=== PATIENT | female | born 1985 | race Caucasian/White ===

== ENCOUNTER → 2016-05-22 | Outpatient (REF) | payer BC, OTHER ==
[2016-05-22 19:17] LABS: FREE T4 1.47 NG/DL (0.76-1.46)
== END ==
LOC: M LABDRAW1 17:01
PROVIDERS: ATTEND Physician Assistant Medical
DX: O99.281 Endocrine, nutritional and metabolic diseases complicating pregnancy, first trimester (principal)

== ENCOUNTER → 2016-07-01 | Outpatient (CLI) | payer BC, OTHER | LOC: M SMT 14:03 | PROVIDERS: ATTEND Advanced Practice Midwife | DX: Z31.430 Encounter of female for testing for genetic disease carrier status for procreative management (principal) ==

== ENCOUNTER → 2016-07-01 | Outpatient (CLI) | payer BC, OTHER ==
[2016-07-01 18:42] LABS: FREE T4 1.08 NG/DL (0.76-1.46)
== END ==
LOC: M SMT 14:01
PROVIDERS: ATTEND Physician Assistant Medical
DX: E06.3 Autoimmune thyroiditis (principal)

== ENCOUNTER → 2016-07-04 | Outpatient (CLI) | payer BC, OTHER ==
--- NOTE | 2016-07-04 13:12 | REP ---
Clinical: Anatomical evaluation. Comparison: None . Findings: Examination demonstrates a single live intrauterine in variable presentation. motion is identified by technologist. Placenta is noted posteriorly and grade zero without evidence for placenta previa or abruption. Amniotic fluid volume is normal. Cervix measures 3.2 cm in length and appears closed. No evidence for nuchal cord. Gestational age by LMP 19 weeks 1 day with GLENN 11/27/2016 . Gestational age by current measurements 20 weeks 2 day with GLENN 11/19/2016 FHR equals 153 beats per minute. BPD 4.4 cm 19 weeks 3 days HC 17.2 cm 19 weeks 5 days AC 14.2 cm 19 weeks 4 days FL 3.6 cm 21 weeks 3 days HL 3.4 cm 21 weeks 3 days HC/AC ratio 1.21 Estimated weight the 344 grams ( 47th percentile). Anatomical assessment demonstrates normal structures including cranium, choroid plexus, cavum, lungs, diaphragm, stomach, cord insertion/three-vessel cord, kidneys/bladder, and upper extremities. Limited evaluation of the posterior fossa, facial features, heart/ventricular outflow tracts, spine and lower extremities. Impression: Single live intrauterine in cephalic presentation demonstrating appropriate interval growth. Anatomical limitations as described above. No gross abnormalities noted. Signed by Shahriar Feliciano MD 07/04/2016 01:03 P
== END ==
LOC: M RAD 10:47
PROVIDERS: ATTEND Advanced Practice Midwife
DX: Z36 Encounter for antenatal screening of mother (principal); Z3A.20 20 weeks gestation of pregnancy

== ENCOUNTER 2016-07-12 00:34 | Outpatient (CLI) | payer BC, OTHER ==
[~2016-07-12] VITALS: Ht 175.3 cm; Wt 122.0 kg
[2016-07-12 01:01] VITALS: BP 110/59
[2016-07-12] MEDS ORDERED: PRENTAB9 PO (01:08)
--- NOTE | 2016-07-12 02:40 | REPUSA ---
Indication: Vaginal bleeding. Technique: Real-time ultrasound images were obtained. Findings: Single, live intrauterine gestation in transverse presentation. heart rate 149 beats per minute . Maternal cervical length measures 3.7 cm. This was not measured transvaginally. Funneling of the in ternal cervical os was not visualized. Posterior placenta. Placenta previa is identified. Amniotic fl uid index 13.2 cm. This is normal for the gestational age. Nuchal CORD was not seen. Impression: Single, live intrauterine gestation. Cervical length 3.7 cm.
[2016-07-12] MEDS ORDERED: LEVO150T7 PO (03:26)
== END 2016-07-12 03:35 | disposition home or self-care (01) ==
LOC: M LDO 00:34
PROVIDERS: ATTEND Advanced Practice Midwife
DX: O26.853 Spotting complicating pregnancy, third trimester (principal); Z3A.20 20 weeks gestation of pregnancy

== ENCOUNTER → 2016-07-26 | Outpatient (CLI) | payer BC, OTHER ==
[~2016-07-26] MED LIST: LEVO150T7 PO; PRENTAB9 PO
--- NOTE | 2016-07-26 11:42 | REP ---
OB ULTRASOUND: Real-time sonographic evaluation of the gravid uterus performed. There is a single intrauterine gestation with estimated gestational age 23 weeks 3 days, EDC 11/19/2016. Today's measurements indicate appropriate growth. BPD 56 mm 23 weeks 1 day, 42nd percentile HC 212 mm 23 weeks 2 days, 46th percentile AC 169 mm 21 weeks 6 days, 17th percentile FL 40 mm 22 weeks 5 days, 33rd percentile HC/AC ratio 1.26 slightly above normal range of 1.03 - 1.22. Estimated weight 502 grams, 16th percentile. Cervix closed and measures 4.1 cm in length. heart rate 147 beats per minute. SEEN/GROSSLY UNREMARKABLE Lateral ventricles Yes Posterior fossa Yes Upper lip Yes Four-chamber heart Yes LVOT No RVOT No Stomach Yes Cord insertion Yes Three vessel cord Yes Kidneys Yes Bladder Yes Spine Yes position: Vertex. Placenta: Posterior. There again appears to be complete placenta previa with no abruption. Amniotic fluid: Within normal limits. Signed by Jose Alberto Rodriguez MD 07/26/2016 04:59 P
== END ==
LOC: M RAD 09:38
PROVIDERS: ATTEND Advanced Practice Midwife
DX: Z36 Encounter for antenatal screening of mother (principal); Z3A.23 23 weeks gestation of pregnancy

== ENCOUNTER → 2016-08-16 | Outpatient (CLI) | payer BC, OTHER ==
[2016-08-16 18:39] LABS: FREE T4 1.22 NG/DL (0.76-1.46)
== END ==
LOC: M SMT 14:34
PROVIDERS: ATTEND Physician Assistant Medical
DX: E06.3 Autoimmune thyroiditis (principal)

== ENCOUNTER → 2016-08-23 | Outpatient (CLI) | payer BC, OTHER ==
[2016-08-23 13:51] LABS: MEAN CORPUSCULAR HEMOGLOBIN 31.2 pg (27.0-33.0); MEAN CORPUSCULAR HGB CONC 33.9 g/dl (32.0-36.5); MEAN CORPUSCULAR VOLUME 91.8 fl (80.0-96.0); RED CELL DISTRIBUTION WIDTH 13.8 % (11.5-14.5); WHITE BLOOD COUNT 7.9 K/mm3 (4.0-10.0)
== END ==
LOC: M SMT 09:31
PROVIDERS: ATTEND Obstetrics & Gynecology
DX: Z31.82 Encounter for Rh incompatibility status (principal)

== ENCOUNTER 2016-09-05 11:46 | Outpatient (CLI) | payer BC, OTHER ==
[~2016-09-05] VITALS: Ht 175.3 cm; Wt 129.0 kg
[2016-09-05 12:03] VITALS: BP 123/83
[2016-09-05 13:39] VITALS: BP 123/94
[2016-09-05 14:01] VITALS: BP 131/78
[2016-09-05] MEDS ORDERED: BETAMETHASONE SOLUSPAN 6MG/ML INJ 5ML (J0702) IM SCH (15:00)
[2016-09-05 15:14] VITALS: BP 120/58
== END 2016-09-05 15:20 | disposition home or self-care (01) ==
LOC: M LDO 11:46
PROVIDERS: ATTEND Obstetrics & Gynecology
DX: O26.873 Cervical shortening, third trimester (principal); O44.03 Complete placenta previa NOS or without hemorrhage, third trimester; Z3A.28 28 weeks gestation of pregnancy; O99.283 Endocrine, nutritional and metabolic diseases complicating pregnancy, third trimester; E03.9 Hypothyroidism, unspecified; Z79.899 Other long term (current) drug therapy; Z91.040 Latex allergy status
CPT/HCPCS: 59025; 76815; 96372; J0702

== ENCOUNTER → 2016-09-05 | Outpatient (CLI) | payer BC, OTHER ==
--- NOTE | 2016-09-06 03:43 | REP ---
Clinical: Anatomical evaluation. Comparison: 07/26/2016 . Findings: Examination demonstrates a single live intrauterine in cephalic presentation. motion is identified by technologist. Placenta is noted posteriorly and grade one with evidence for complete placenta previa and suggestions for vasa previa. Amniotic fluid volume is normal. Cervix measures 1.4 cm. Nuchal cord cannot be excluded. Gestational age by LMP 28 weeks 1 day with GLENN 11/27/2016 . Gestational age by current measurements 29 weeks 1 day with GLENN 11/20/2016 . FHR equals 144 beats per minute. Estimated weight 1335 grams ( 66th percentile). Limited anatomical assessment demonstrates no gross abnormalities with normal visualization of the cranium, cavum, stomach, three-vessel cord/cord insertion, kidneys/bladder, and lower extremities. Impression: Incompetent cervix at 1.4 cm and closed internal os. Complete placenta previa and possible associated vasa previa. Nuchal cord cannot be excluded. special procedures technologist note states the patient went directly to labor and delivery. Signed by Shahriar Feliciano MD 09/06/2016 03:34 A
== END ==
LOC: M RAD 10:40
PROVIDERS: ATTEND Obstetrics & Gynecology
DX: O44.12 Complete placenta previa with hemorrhage, second trimester (principal); Z3A.29 29 weeks gestation of pregnancy

== ENCOUNTER 2016-09-06 14:24 | Outpatient (CLI) | payer BC, OTHER ==
[~2016-09-06] VITALS: Ht 175.3 cm; Wt 129.0 kg
[2016-09-06 14:41] VITALS: BP 116/78
[2016-09-06] MEDS ORDERED: BETAMETHASONE SOLUSPAN 6MG/ML INJ 5ML (J0702) IM ONE (15:15)
[2016-09-06 15:30] VITALS: BP 109/72
--- NOTE | 2016-09-11 10:19 | IPN ---
DATE: 09/06/2016 HISTORY: 31-year-old G3, P1-0-1-1 female 28-2/7 weeks gestation, EDC 11/27/2016 presents for repeat dose of betamethasone. She was noted yesterday to have a short cervix on ultrasound exam. The ultrasound was done to evaluate placenta previa. A single dose of steroid was administered on 09/05/2016. She presents for repeat dose. She has no complaints. ASSESSMENT AND PLAN: 31, G3, P1 at 28-2/7 weeks gestation presents for repeat dose of steroids. Patient has been administered her second dose. She will followup in the office as scheduled.
== END 2016-09-06 15:34 | disposition home or self-care (01) ==
LOC: M LDO 14:24
PROVIDERS: ATTEND Specialist
DX: O09.92 Supervision of high risk pregnancy, unspecified, second trimester (principal); Z91.040 Latex allergy status; Z3A.00 Weeks of gestation of pregnancy not specified

== ENCOUNTER → 2016-09-25 | Outpatient (CLI) | payer BC, OTHER ==
[2016-09-25 19:39] LABS: FREE T4 1.11 NG/DL (0.76-1.46)
== END ==
LOC: M SMT 14:07
PROVIDERS: ATTEND Physician Assistant Medical
DX: O22.33 Deep phlebothrombosis in pregnancy, third trimester (principal)

== ENCOUNTER → 2016-10-04 | Outpatient (CLI) | payer BC, OTHER ==
--- NOTE | 2016-10-04 11:00 | REP ---
Clinical: Placenta previa. Comparison: 09/05/2016. Findings: Ultrasound examination demonstrates single live intrauterine in cephalic presentation. motion was identified by technologist. Gestational age by first ultrasound 33 weeks 3 days with estimated date of delivery 11/19/2016. heart rate equals 157 beats per minute. Placenta is noted posteriorly and grade II with complete placenta previa and retroplacental vessels overlying the closed internal os. Cervix measures 2 cm in length. Impression: 1 Posterior grade II placenta with complete placenta previa and evidence for retroplacental vessels over the internal os. 2. Cervix appears closed and measures 2 cm in length. 3. Live in cephalic presentation. Signed by Shahriar Feliciano MD 10/04/2016 10:52 A
== END ==
LOC: M RAD 10:06
PROVIDERS: ATTEND Advanced Practice Midwife
DX: O44.13 Complete placenta previa with hemorrhage, third trimester (principal); Z3A.33 33 weeks gestation of pregnancy

== ENCOUNTER 2016-10-23 12:25 | Outpatient (CLI) | payer BC, OTHER ==
[~2016-10-23] VITALS: Ht 175.3 cm; Wt 132.0 kg
[~2016-10-23 12:25] MED LIST changes: -COLA100C3 PO; -IBUP800T23 PO; -MILKSUS PO; -PERCOCET PO
[2016-10-23 12:45] VITALS: BP 125/69
[2016-10-23] MEDS ORDERED: BETAMETHASONE SOLUSPAN 6MG/ML INJ 5ML (J0702) IM SCH (13:00)
[2016-10-23 13:47] VITALS: BP 121/72
== END 2016-10-23 13:55 | disposition home or self-care (01) ==
LOC: M LDO 12:25
PROVIDERS: ATTEND Advanced Practice Midwife
DX: O44.03 Complete placenta previa NOS or without hemorrhage, third trimester (principal); Z3A.35 35 weeks gestation of pregnancy
CPT/HCPCS: 59025; J0702

== ENCOUNTER → 2016-10-23 | Outpatient (CLI) | payer BC, OTHER ==
[~2016-10-23] MED LIST changes: +COLA100C3 PO; +IBUP800T23 PO; +MILKSUS PO; +PERCOCET PO
--- NOTE | 2016-10-23 12:54 | REP ---
Obstetric ultrasound, stat request: There is a single intrauterine gestation in a vertex presentation. There is movement and cardiac activity. heart rate is 150 beats per minute. The left posterior, however, there is a complete placenta previa. This was also identified on the prior study of 10/04/2016. The amniotic fluid volume subjectively is normal. The amniotic fluid index is 16.5 (7.7 dash 24.8). By today's ultrasound gestational age is 36 weeks 3 days with an GLENN of 11/17/2016. Based on the first ultrasound during this gestation the gestational age is 36 weeks 1 day. weight is 3000 and 7 grams (6 pounds, 10 ounces). This is the 61st percentile for 36 weeks 1 day. Umbilical artery Doppler assessment: SD ratio 2.33. This is 1.95 - 2.95). Resistive index 0.57 (0.59 - 0.75). Diastolic flow velocity 18.5 cm/sec. Signed by Jose Alberto Piña MD 10/23/2016 12:45 P
== END ==
LOC: M RAD 10:51
PROVIDERS: ATTEND Obstetrics & Gynecology
DX: O44.00 Complete placenta previa NOS or without hemorrhage, unspecified trimester (principal)

== ENCOUNTER 2016-10-24 13:35 | Outpatient (CLI) | payer BC, OTHER ==
[2016-10-24] MEDS ORDERED: BETAMETHASONE SOLUSPAN 6MG/ML INJ 5ML (J0702) IM ONE (13:45)
== END 2016-10-24 13:46 | disposition home or self-care (01) ==
LOC: M LDO 13:35
PROVIDERS: ATTEND Obstetrics & Gynecology
DX: O09.893 Supervision of other high risk pregnancies, third trimester (principal); Z3A.00 Weeks of gestation of pregnancy not specified

== ENCOUNTER 2016-10-27 01:31 | Inpatient (IN) | payer BC, OTHER ==
[~2016-10-27] VITALS: Ht 175.3 cm; Wt 132.0 kg
[2016-10-27] VITALS (9 sets, daily range): BP systolic 88–116; BP diastolic 50–68
[2016-10-27] MEDS ORDERED: LACTATED RINGER'S 1000 ML IV STA (01:45)
[2016-10-27] MEDS ORDERED: BICITRA 30ML SOLN UDC PO ONE (01:45)
[2016-10-27] MEDS ORDERED: LR 1,000 ML IV SCH (01:45)
[2016-10-27] MEDS ORDERED: OXYTOCIN INJ 10 UNITS/ML VIAL (J2590) As Ordered ONE (01:55)
[2016-10-27] MEDS ORDERED: MORPHINE PRES-FREE INJ 10 MG/10 ML VIAL (J2274) As Ordered ONE (01:55)
[2016-10-27 02:10] LABS: MEAN CORPUSCULAR HEMOGLOBIN 31.4 pg (27.0-33.0); MEAN CORPUSCULAR HGB CONC 35.2 g/dl (32.0-36.5); MEAN CORPUSCULAR VOLUME 89.1 fl (80.0-96.0); RED CELL DISTRIBUTION WIDTH 13.6 % (11.5-14.5); WHITE BLOOD COUNT 9.3 K/mm3 (4.0-10.0)
[2016-10-27] MEDS ORDERED: NALBUPHINE HCL 10 MG/ML AMP (J2300) IV PRN ×2 (02:13→03:45)
[2016-10-27] MEDS ORDERED: NALOXONE INJ 0.4 MG/1 ML VIAL (J2310) IV PRN ×2 (02:13)
[2016-10-27] MEDS ORDERED: METOCLOPRAMIDE INJ 10MG/2ML VIAL (J2765) IV PRN (02:13)
[2016-10-27] MEDS ORDERED: ONDANSETRON 4MG/2ML VIAL (J2405) IV PRN ×2 (02:13→03:45)
[2016-10-27] MEDS ORDERED: PHENYLephrine HCL 500 MCG/5 ML (100MCG/ML) SYRINGE (J2370) As Ordered ONE (02:16)
[2016-10-27] MEDS ORDERED: ONDANSETRON 4MG/2ML VIAL (J2405) As Ordered ONE (02:27)
[2016-10-27] MEDS ORDERED: KETOROLAC 60 MG/2 ML VIAL (J1885) As Ordered ONE (02:27)
[2016-10-27] MEDS: LR 1,000 ML IV SCH ×2 (03:13→08:02)
[2016-10-27] MEDS ORDERED: MOM 30ML SUSPENSION UDC PO PRN (03:15)
[2016-10-27] MEDS ORDERED: OXYTOCIN DRIP 30 UNITS in APPROPRIATE DILUENT 1 EA IV ONE (03:15)
[2016-10-27] MEDS ORDERED: RHOGAM 300 MCG (1500 IU) INJ (J2790) IM SCH (03:15)
[2016-10-27] MEDS ORDERED: DOCUSATE SODIUM 100 MG CAP PO PRN (03:15)
[2016-10-27] MEDS ORDERED: PERCOCET 5MG/325MG TAB PO PRN ×2 (03:15)
[2016-10-27] MEDS ORDERED: MEASLES,MUMPS,RUBELLA VACCINE INJ (MMR-II) (90707) SC SCH (03:15)
[2016-10-27 03:44] LABS: CORD GAS ABE V -0.3; CORD GAS HCO3 V 26.1 MEQ/L; CORD GAS O2 SAT V 49.9 %; CORD GAS PCO2 V 49.8 mmHg; CORD GAS PH V 7.338 UNITS; CORD GAS PO2 V 23.5 mmHg; CORD GAS SBC V 23.1 MEQ/L; CORD GAS TCO2 V 27.7 MEQ/L
[2016-10-27 03:45] LABS: CORD GAS ABE A -5.1; CORD GAS HCO3 A 23.8 MEQ/L; CORD GAS O2 SAT A 23.1 %; CORD GAS PCO2 A 61.5 mmHg; CORD GAS PH A 7.206 UNITS; CORD GAS PO2 A 15.5 mmHg; CORD GAS SBC A 18.7 MEQ/L; CORD GAS TCO2 A 25.7 MEQ/L
[2016-10-27] MEDS ORDERED: MEPERIDINE INJ 25 MG/ML VIAL (J2175) IV PRN (03:45)
[2016-10-27] MEDS ORDERED: fentaNYL 100 MCG/2 ML INJECTION (J3010) IV PRN (03:45)
--- NOTE | 2016-10-27 08:29 | RO ---
DATE OF PROCEDURE: 10/27/2016 PREPROCEDURE DIAGNOSES: 1. Bleeding, placenta previa. 2. Intrauterine at 35 weeks 3 days. POSTPROCEDURE DIAGNOSES: 1. Bleeding, placenta previa. 2. Intrauterine at 35 weeks 3 days. PROCEDURE: Primary lower transverse section. SURGEON: Dr. Gabriela Gonzalez MICROFICHE CAMERA OPERATOR: Maggi Woods CNM ANESTHESIA: Spinal. ESTIMATED BLOOD LOSS: 700 mL. URINE OUTPUT: 50 mL. INTRAVENOUS FLUIDS: 2 liters of lactated ringer solution. PREOPERATIVE ANTIBIOTICS: 2 grams of Ancef. SPECIMENS: Cord blood, cord gases and placenta. OPERATIVE FINDINGS: Patient with a complete placenta previa. Delivery of a live born male infant, scores 7 and 8, weight 2818 grams or 6 pounds 3 ounces. INDICATION FOR PROCEDURE: This patient is a 31-year-old, 2, para 1, who presented to labor and delivery at 35 weeks 3 days estimated gestational age with a known placenta previa with acute vaginal bleeding. She had had a previous episode of vaginal bleeding early in the and she had a completed a course of steroids. On evaluation in labor and delivery, she had active bleeding with a Category 1 heart rate tracing. Decision was made to proceed with a delivery secondary to active bleeding with a placenta previa. DESCRIPTION OF OPERATION: After informed consent was obtained and written content was reviewed, the patient was brought to the operating room where spinal anesthesia was placed. She was then placed in supine position with a left lateral tilt. Dukes catheter was placed and set to gravity. She was then prepped and draped in a normal sterile fashion. A time out in the operating room was then performed identifying the patient, the procedure to be performed, as well as drug allergies. Anesthesia was then tested and deemed to be adequate. A Pfannenstiel skin incision was then made and carried down to the underlying rectus fascia. The fascia was then scored and this incision was extended bilaterally. The fascia was then dissected off the underlying rectus muscles, both superiorly and inferiorly. The rectus muscles were in the midline. The peritoneum was then entered. The vesicouterine peritoneum was then identified, was tented and excised creating a bladder flap. The bladder blade was then placed to retract back the bladder. A curvilinear incision was then made in the lower uterine segment. Amniotomy was then performed productive of clear fluid. The head was brought to the level of the incision and it was delivered with the aid of a Kiwi vacuum. There was a double nuchal cord which was reduced, followed by delivery of shoulders and corpus. The cord was clamped times two and was cut. The was taken over to the warmer where Dr. Sargent, meter attendant waited. Cord gases and cord blood was obtained. The placenta was then delivered grossly intact. The uterus was then exteriorized and cleared of all clots and debris. The uterine incision was then closed in two layers using #0 Vicryl, the first layer in a running locking fashion, followed by a second layer for imbrication in a running nonlocking fashion. A [id number] stitch was also placed over the incision. The abdomen was then suctioned. The uterine incision was inspected and noted to be hemostatic. The uterus was returned in the patient's abdomen. Once again inspected and noted to be hemostatic. The anterior peritoneum was then reapproximated using #3-0 Vicryl. The rectus muscles were reapproximated using #3-0 Vicryl. The fascia was then closed using #0 Vicryl in a running nonlocking fashion. The subcutaneous tissue was then reapproximated using #3-0. Several subdermal stitches were placed using #3-0 Vicryl. The skin was closed with #4-0 Monocryl in a subcuticular fashion. The incision was then cleaned and dried. Mastisol was applied above and below the incision. Steri-Strips were applied over the incision. The incision was dressed. The patient was then taken to recovery in stable condition. Counts were correct. The couple has decided to name their daughter, Chinyere.
[2016-10-27] MEDS ORDERED: PRENATAL VITAMIN TAB PO SCH (09:00)
[2016-10-27] MEDS: KETOROLAC 30 MG/ML VIAL (J1885) IV SCH ×3 (09:12→21:11)
[2016-10-27] MEDS: LEVOTHYROXINE 150MCG TABLET (0.15MG) PO SCH (11:12)
[2016-10-27] MEDS ORDERED: IBUP800T23 PO (12:51)
[2016-10-27] MEDS ORDERED: PERCOCET PO (12:52)
[2016-10-27] MEDS: PRENATAL VITAMIN TAB PO SCH (21:11)
[2016-10-28 01:40] VITALS: BP 114/61
[2016-10-28] MEDS: KETOROLAC 30 MG/ML VIAL (J1885) IV SCH (03:05)
[2016-10-28 05:32] VITALS: BP 107/56
[2016-10-28] MEDS: LEVOTHYROXINE 150MCG TABLET (0.15MG) PO SCH (06:09)
[2016-10-28 06:46] LABS: MEAN CORPUSCULAR HEMOGLOBIN 31.8 pg (27.0-33.0); MEAN CORPUSCULAR HGB CONC 35.1 g/dl (32.0-36.5); MEAN CORPUSCULAR VOLUME 90.8 fl (80.0-96.0); RED CELL DISTRIBUTION WIDTH 13.8 % (11.5-14.5); WHITE BLOOD COUNT 9.2 K/mm3 (4.0-10.0)
[2016-10-28 10:00] VITALS: BP 110/65
[2016-10-28] MEDS: IBUPROFEN 800 MG TAB PO SCH ×2 (11:09→18:43)
[2016-10-28 14:32] VITALS: BP 123/72
[2016-10-28 18:12] VITALS: BP 113/78
[2016-10-28] MEDS: PRENATAL VITAMIN TAB PO SCH (20:06)
[2016-10-29] MEDS: IBUPROFEN 800 MG TAB PO SCH ×2 (04:11→10:09)
[2016-10-29] MEDS: LEVOTHYROXINE 150MCG TABLET (0.15MG) PO SCH (05:30)
[2016-10-29 05:46] VITALS: BP 99/57
[2016-10-29] MEDS ORDERED: COLA100C3 PO (10:22)
[2016-10-29] MEDS ORDERED: MILKSUS PO (10:25)
--- NOTE | 2016-10-31 15:33 | DSES ---
DATE OF ADMISSION: 10/27/2016 DATE OF DISCHARGE: 10/29/2016 DISCHARGE DIAGNOSES: 1. Complete placenta previa. 2. Primary section. PROCEDURES PERFORMED WHILE IN THE HOSPITAL: 1. Spinal anesthesia. 2. Primary section. DISCHARGE CONDITION: Stable. HISTORY/HOSPITAL COURSE: This patient is a 31-year-old 2, para 1, who presented at 35 weeks with active vaginal bleeding in presence of a known complete placenta previa. She underwent a section which was uncomplicated, productive of a live born male infant, Apgars of 7 and 8. Weight was 2818 grams or 6 pounds 3 ounces. Estimated blood loss was 700 mL. She did well postoperatively and by postop day #2 had met all discharge criteria and was discharged home in stable condition. PHYSICAL EXAMINATION ON DAY OF DISCHARGE: VITAL SIGNS: Stable. She was afebrile. GENERAL APPEARANCE: Well appearing. No acute distress. ABDOMEN: Soft. Appropriately tender. Fundus below umbilicus. Incision was clean, dry, intact. Well approximated. Not erythemic. EXTREMITIES: Negative for calf tenderness. DISCHARGE MEDICATIONS: - ibuprofen - Percocet DISCHARGE INSTRUCTIONS: 1. She is instructed to followup for incision check in 2 weeks. 2. Remain on pelvic rest. 3. Report severe pain, heavy vaginal bleeding, fever or incisional issues.
== END 2016-10-29 11:03 | disposition home or self-care (01) | DRG 540 ==
LOC: M LDI 01:31 → M OBS 05:15
PROVIDERS: ADMIT Advanced Practice Midwife; ATTEND Advanced Practice Midwife
PROC: 10D00Z1 Extraction of Products of Conception, Low, Open Approach (ICD-10-PCS; principal; 2016-10-27 02:21)
DX: O44.13 Complete placenta previa with hemorrhage, third trimester (principal); O69.82X0 Labor and delivery complicated by other cord entanglement, without compression, not applicable or unspecified; Z3A.35 35 weeks gestation of pregnancy; Z37.0 Single live birth

== ENCOUNTER → 2017-01-15 | Outpatient (CLI) | payer BC, OTHER ==
[~2017-01-15] MED LIST changes: +COLA100C5 PO; +IBUP1TAB7 PO; +MILKSUS PO; +PERCOCET PO
[2017-01-15 13:33] LABS: FREE T4 0.87 NG/DL (0.76-1.46)
== END ==
LOC: M SMT 08:56
PROVIDERS: ATTEND Internal Medicine Endocrinology, Diabetes & Metabolism
DX: E06.3 Autoimmune thyroiditis (principal)

== ENCOUNTER → 2017-04-29 | Outpatient (CLI) | payer BC, OTHER ==
[2017-04-29 13:39] LABS: FREE T4 0.72 NG/DL (0.76-1.46)
== END ==
LOC: M SMT 11:37
PROVIDERS: ATTEND Internal Medicine Endocrinology, Diabetes & Metabolism
DX: E06.3 Autoimmune thyroiditis (principal)

== ENCOUNTER → 2017-05-21 | Outpatient (REF) | payer OTHER ==
[2017-05-24 08:09] LABS: HPV HYBRID CAPTURE II Negative (Negative)
== END ==
LOC: M LAB REF 17:59
DX: Z12.4 Encounter for screening for malignant neoplasm of cervix (principal)

== ENCOUNTER → 2017-07-01 | Outpatient (CLI) | payer BC, OTHER ==
[2017-07-01 20:21] LABS: FREE T4 1.26 NG/DL (0.76-1.46)
[2017-07-01 20:21] LABS: THYROID STIMULATING HORMONE 0.226 uIU/ML (0.358-3.740)
== END ==
LOC: M SMT 15:08
DX: E06.3 Autoimmune thyroiditis (principal)
CPT/HCPCS: 84443

== ENCOUNTER → 2017-10-03 | Outpatient (REF) | payer OTHER ==
[2017-10-03 12:35] LABS: FREE T4 1.64 NG/DL (0.76-1.46)
[2017-10-03 12:35] LABS: THYROID STIMULATING HORMONE 0.046 uIU/ML (0.358-3.740)
== END ==
LOC: M LABDRAW1 09:20
DX: E06.3 Autoimmune thyroiditis (principal)
CPT/HCPCS: 84443

== ENCOUNTER → 2017-12-07 | Outpatient (CLI) | payer OTHER ==
[2017-12-07 18:27] LABS: FREE T4 1.14 NG/DL (0.76-1.46)
== END ==
LOC: M WUC 16:01
DX: E06.3 Autoimmune thyroiditis (principal)

== ENCOUNTER → 2018-03-31 | Outpatient (CLI) | payer OTHER ==
[2018-03-31 14:10] LABS: HCG, SERUM QUANTITATIVE 12 MIU/ML
== END ==
LOC: M SMT 09:15
DX: O02.1 Missed abortion (principal)
CPT/HCPCS: 84702

== ENCOUNTER → 2018-03-31 | Outpatient (CLI) | payer OTHER ==
[2018-03-31 14:21] LABS: BASO % 0.6 % (0.0-1.0); EOS # 0.3 10^3/uL (0.0-0.50); EOS % 4.4 % (0.0-3.0); HEMATOCRIT 39.4 % (36.0-47.0); IMMATURE GRANULOCYTE % 0.2 % (0-3.0); LYMPH # 2.2 10^3/uL (1.5-4.5); LYMPH % 36.4 % (24.0-44.0); MEAN CORPUSCULAR HEMOGLOBIN 30.9 pg (27.0-33.0); MEAN CORPUSCULAR VOLUME 93.6 fl (80.0-96.0); MONO # 0.3 10^3/uL (0.0-0.8); MONO % 5.4 % (0.0-5.0); NEUTROPHILS # 3.3 10^3/uL (1.8-7.7); PLATELET COUNT, AUTOMATED 377 10^3/uL (150-450); RED BLOOD COUNT 4.21 10^6/uL (4.00-5.40); RED CELL DISTRIBUTION WIDTH 12.3 % (11.5-14.5); WHITE BLOOD COUNT 6.2 10^3/uL (4.0-10.0)
[2018-03-31 14:22] LABS: HEMATOCRIT 39.4 % (36.0-47.0)
[2018-03-31 14:27] LABS: ALBUMIN 3.8 GM/DL (3.2-5.2); ALBUMIN/GLOBULIN RATIO 1.19 (1.00-1.93); ALKALINE PHOSPHATASE 72 U/L (45-117); ALT/SGPT 20 U/L (12-78); ANION GAP 5 MEQ/L (8-16); AST/SGOT 12 U/L (7-37); BILIRUBIN,TOTAL 0.4 MG/DL (0.2-1.0); BLOOD UREA NITROGEN 10 MG/DL (7-18); CARBON DIOXIDE LEVEL 28 MEQ/L (21-32); CHLORIDE LEVEL 106 MEQ/L (98-107); CREATININE FOR GFR 0.73 MG/DL (0.55-1.30); FERRITIN 12 NG/ML (8-252); GLOMERULAR FILTRATION RATE > 60.0 (>60); GLUCOSE, FASTING 90 MG/DL (70-100); IRON (FE) 58 UG/DL (50-170); MAGNESIUM LEVEL 2.4 MG/DL (1.8-2.4); PHOSPHORUS LEVEL 3.9 MG/DL (2.5-4.9); POTASSIUM SERUM 4.5 MEQ/L (3.5-5.1); SODIUM LEVEL 139 MEQ/L (136-145); TOTAL IRON BINDING CAPACITY 323 UG/DL (250-450)
[2018-03-31 14:35] LABS: TOTAL 25(OH) VITAMIN D 23.9 NG/ML (30.0-100.0); VITAMIN B12 LEVEL 628 PG/ML (247-911)
[2018-03-31 14:46] LABS: ESTIMATED AVERAGE GLUCOSE 94 MG/DL (60-110); HEMOGLOBIN A1c 4.9 %
[2018-04-03 12:55] LABS: PRETREATED FOLATE FOR RBCFOL 11.3 NG/ML; RBC FOLATE 602 NG/ML (280-791)
== END ==
LOC: M SMT 09:10
DX: K91.2 Postsurgical malabsorption, not elsewhere classified (principal); E55.9 Vitamin D deficiency, unspecified; Z98.84 Bariatric surgery status
CPT/HCPCS: 83550

== ENCOUNTER → 2018-04-07 | Outpatient (CLI) | payer BC, OTHER ==
[2018-04-07 14:01] LABS: FREE T4 1.14 NG/DL (0.76-1.46)
== END ==
LOC: M SMT 10:50
DX: E06.3 Autoimmune thyroiditis (principal)
CPT/HCPCS: 84443

== ENCOUNTER → 2018-04-07 | Outpatient (CLI) | payer BC, OTHER ==
[2018-04-07 13:41] LABS: HCG, SERUM QUANTITATIVE 3 MIU/ML
== END ==
LOC: M SMT 10:47
DX: O02.1 Missed abortion (principal)
CPT/HCPCS: 84702

== ENCOUNTER → 2018-09-28 | Outpatient (CLI) | payer BC, OTHER ==
[~2018-09-28] MED LIST changes: +MILK120011 PO; -MILKSUS PO
[2018-09-28 17:22] LABS: BASO % 0.6 % (0.0-1.0); EOS # 0.3 10^3/uL (0.0-0.50); EOS % 4.9 % (0.0-3.0); HEMATOCRIT 40.4 % (36.0-47.0); HEMOGLOBIN 12.6 g/dl (12.0-15.5); LYMPH # 2.7 10^3/uL (1.5-4.5); LYMPH % 42.9 % (24.0-44.0); MEAN CORPUSCULAR HEMOGLOBIN 28.1 pg (27.0-33.0); MEAN CORPUSCULAR HGB CONC 31.2 g/dl (32.0-36.5); MEAN CORPUSCULAR VOLUME 90.2 fl (80.0-96.0); MONO # 0.4 10^3/uL (0.0-0.8); MONO % 6.9 % (0.0-5.0); NEUTROPHILS # 2.8 10^3/uL (1.8-7.7); NEUTROPHILS % 44.4 % (36.0-66.0); PLATELET COUNT, AUTOMATED 380 10^3/uL (150-450); RED BLOOD COUNT 4.48 10^6/uL (4.00-5.40); WHITE BLOOD COUNT 6.4 10^3/uL (4.0-10.0)
[2018-09-28 17:32] LABS: ALBUMIN 3.4 GM/DL (3.2-5.2); ALT/SGPT 60 U/L (12-78); BILIRUBIN,TOTAL 0.4 MG/DL (0.2-1.0); BLOOD UREA NITROGEN 8 MG/DL (7-18); CALCIUM LEVEL 8.4 MG/DL (8.5-10.1); CARBON DIOXIDE LEVEL 28 MEQ/L (21-32); CHLORIDE LEVEL 107 MEQ/L (98-107); CREATININE FOR GFR 0.58 MG/DL (0.55-1.30); FERRITIN 8 NG/ML (8-252); GLOMERULAR FILTRATION RATE > 60.0 (>60); GLUCOSE, FASTING 72 MG/DL (70-100); IRON (FE) 100 UG/DL (50-170); MAGNESIUM LEVEL 2.2 MG/DL (1.8-2.4); PERCENT SATURATION 29.9 % (13.2-45.0); PHOSPHORUS LEVEL 3.7 MG/DL (2.5-4.9); POTASSIUM SERUM 4.5 MEQ/L (3.5-5.1); SODIUM LEVEL 142 MEQ/L (136-145); TOTAL IRON BINDING CAPACITY 335 UG/DL (250-450); TOTAL PROTEIN 6.9 GM/DL (6.4-8.2)
[2018-09-28 17:33] LABS: TOTAL 25(OH) VITAMIN D 29.1 NG/ML (30.0-100.0); VITAMIN B12 LEVEL 613 PG/ML (247-911)
[2018-09-28 17:34] LABS: FOLATE 12.9 NG/ML (>5.4)
[2018-09-28 18:30] LABS: HEMOGLOBIN A1c 5.7 %
== END ==
LOC: M SMT 13:32
PROVIDERS: ATTEND Physician Assistant Surgical
DX: K91.2 Postsurgical malabsorption, not elsewhere classified (principal); E55.9 Vitamin D deficiency, unspecified; Z98.84 Bariatric surgery status

== ENCOUNTER → 2018-10-27 | Outpatient (REF) | payer OTHER ==
[2018-10-27 17:18] LABS: FREE T4 1.01 NG/DL (0.76-1.46); THYROID STIMULATING HORMONE 0.482 uIU/ML (0.358-3.740)
== END ==
LOC: M LABDRAW1 16:27
PROVIDERS: ATTEND Nurse Practitioner Family
DX: E06.3 Autoimmune thyroiditis (principal)

== ENCOUNTER → 2019-03-24 | Outpatient (CLI) | payer OTHER ==
[2019-03-24 16:50] LABS: HEMATOCRIT 33.5 % (36.0-47.0)
[2019-03-24 16:59] LABS: BASO # 0.1 10^3/uL (0.0-0.2); BASO % 1.1 % (0.0-1.0); EOS # 0.3 10^3/uL (0.0-0.5); EOS % 5.6 % (0.0-3.0); HEMATOCRIT 32.6 % (36.0-47.0); HEMOGLOBIN 9.8 g/dl (12.0-15.5); LYMPH # 2.3 10^3/uL (1.5-5.0); LYMPH % 48.4 % (24.0-44.0); MEAN CORPUSCULAR HEMOGLOBIN 24.6 pg (27.0-33.0); MEAN CORPUSCULAR HGB CONC 30.1 g/dl (32.0-36.5); MEAN CORPUSCULAR VOLUME 81.7 fl (80.0-96.0); MONO # 0.4 10^3/uL (0.0-0.8); MONO % 8.1 % (0.0-5.0); NEUTROPHILS # 1.7 10^3/uL (1.5-8.5); NEUTROPHILS % 36.8 % (36.0-66.0); PLATELET COUNT, AUTOMATED 341 10^3/uL (150-450); RED BLOOD COUNT 3.99 10^6/uL (4.00-5.40); WHITE BLOOD COUNT 4.7 10^3/uL (4.0-10.0)
[2019-03-24 17:32] LABS: ALBUMIN 3.5 GM/DL (3.2-5.2); ALT/SGPT 24 U/L (12-78); BILIRUBIN,TOTAL 0.4 MG/DL (0.2-1.0); BLOOD UREA NITROGEN 8 MG/DL (7-18); CALCIUM LEVEL 8.6 MG/DL (8.5-10.1); CARBON DIOXIDE LEVEL 28 MEQ/L (21-32); CHLORIDE LEVEL 107 MEQ/L (98-107); CREATININE FOR GFR 0.69 MG/DL (0.55-1.30); FERRITIN 5 NG/ML (8-252); GLOMERULAR FILTRATION RATE > 60.0 (>60); GLUCOSE, FASTING 71 MG/DL (70-100); IRON (FE) 28 UG/DL (50-170); MAGNESIUM LEVEL 2.1 MG/DL (1.8-2.4); PERCENT SATURATION 7.2 % (13.2-45.0); POTASSIUM SERUM 4.5 MEQ/L (3.5-5.1); SODIUM LEVEL 139 MEQ/L (136-145); TOTAL IRON BINDING CAPACITY 387 UG/DL (250-450); TOTAL PROTEIN 6.9 GM/DL (6.4-8.2)
[2019-03-24 17:40] LABS: TOTAL 25(OH) VITAMIN D 21.6 NG/ML (30.0-100.0); VITAMIN B12 LEVEL 218 PG/ML (247-911)
[2019-03-24 17:44] LABS: HEMOGLOBIN A1c 5.5 %
== END ==
LOC: M LRY 11:54
PROVIDERS: ATTEND Physician Assistant
DX: K91.2 Postsurgical malabsorption, not elsewhere classified (principal); Z98.84 Bariatric surgery status; E55.9 Vitamin D deficiency, unspecified

== ENCOUNTER → 2019-04-27 | Outpatient (CLI) | payer OTHER ==
[2019-04-27 17:22] LABS: FREE T4 1.23 NG/DL (0.76-1.46); THYROID STIMULATING HORMONE 0.223 uIU/ML (0.358-3.740)
== END ==
LOC: M LRY 11:29
PROVIDERS: ATTEND Nurse Practitioner Family
DX: E06.3 Autoimmune thyroiditis (principal)

== ENCOUNTER 2019-06-08 08:49 | Day surgery (SDC) | payer BC, OTHER ==
[~2019-06-08] VITALS: Ht 175.3 cm; Wt 83.5 kg
[~2019-06-08 08:49] MED LIST changes: +CVS2500C PO; +FERR324T12 PO; +LR 1,000 ML IV ONE; +VITA-199 PO; +VITA200028 PO
[2019-06-08 09:18] LABS: HEMATOCRIT 38.9 % (36.0-47.0); HEMOGLOBIN 11.9 g/dl (12.0-15.5); MEAN CORPUSCULAR HEMOGLOBIN 26.4 pg (27.0-33.0); MEAN CORPUSCULAR HGB CONC 30.6 g/dl (32.0-36.5); MEAN CORPUSCULAR VOLUME 86.3 fl (80.0-96.0); PLATELET COUNT, AUTOMATED 412 10^3/uL (150-450); RED BLOOD COUNT 4.51 10^6/uL (4.00-5.40); WHITE BLOOD COUNT 5.3 10^3/uL (4.0-10.0)
[2019-06-08] MEDS ORDERED: MIDAZOLAM INJ 2 MG/2 ML VIAL (J2250) As Ordered ONE (10:00)
[2019-06-08] MEDS ORDERED: KETOROLAC 60 MG/2 ML VIAL (J1885) As Ordered ONE (10:00)
[2019-06-08] MEDS ORDERED: LIDOCAINE 2% INJ 100 MG/5 ML SDV (FOR ANES.) As Ordered ONE (10:00)
[2019-06-08] MEDS ORDERED: fentaNYL 100 MCG/2 ML INJECTION (J3010) As Ordered ONE (10:00)
[2019-06-08] MEDS ORDERED: propofoL 200 MG/20 ML VIAL As Ordered ONE (10:00)
[2019-06-08] MEDS ORDERED: dexameTHASONE 4 MG/ML 1ML VIAL (J1100) As Ordered ONE (10:00)
[2019-06-08] MEDS ORDERED: ePHEDrine SULFATE 25 MG/5 ML(5MG/ML) SYRINGE As Ordered ONE (10:06)
[2019-06-08] MEDS ORDERED: ONDANSETRON 4MG/2ML VIAL (J2405) As Ordered ONE (10:27)
[2019-06-08] MEDS ORDERED: ACETAMINOPHEN 1000MG 100ML IV BTL (OFIRMEV) (J0131 PER 10MG) As Ordered ONE (10:47)
[2019-06-08] MEDS ORDERED: METOCLOPRAMIDE INJ 10MG/2ML VIAL (J2765) IV PRN (11:00)
[2019-06-08] MEDS ORDERED: LR 1,000 ML IV SCH ×2 (11:00)
[2019-06-08] MEDS ORDERED: ONDANSETRON 4MG/2ML VIAL (J2405) IV PRN (11:00)
[2019-06-08] MEDS ORDERED: fentaNYL 100 MCG/2 ML INJECTION (J3010) IV PRN (11:00)
[2019-06-08] MEDS ORDERED: ACETAMINOPHEN 500 MG TAB PO ONE (11:00)
[2019-06-08] MEDS ORDERED: DOXYCYCLINE HYCLATE 100 MG TAB PO ONE (11:00)
[2019-06-08] MEDS ORDERED: PERCOCET 5MG/325MG TAB PO PRN (11:00)
[2019-06-08 12:00] VITALS: BP 99/54
--- NOTE | 2019-06-08 21:36 | RO ---
DATE OF PROCEDURE: 06/08/2019 PREPROCEDURE DIAGNOSIS: Embryonic demise. POSTPROCEDURE DIAGNOSIS: Embryonic demise. PROCEDURE: Dilation, evacuation and curettage (D, E and C). SURGEON: Jesus Buchanan MD PLUMBING HARDWARE ASSEMBLER: ANESTHESIA: General endotracheal. ESTIMATED BLOOD LOSS: 50 mL. URINE OUTPUT: 10 mL. FINDINGS: Moderate amount of products of conception. Mildly enlarged uterus. DESCRIPTION OF PROCEDURE: The patient was taken to the operating room where general endotracheal anesthesia was induced. She was prepped and draped in a sterile fashion in the dorsal lithotomy position. The bladder was emptied with a catheter. A speculum was placed in the vagina, and the anterior lip of the cervix was grasped with a tenaculum. The cervix was dilated with tapered dilators. A #9 mm suction curette was placed through the internal os. The suction device was activated, the curette was gently rotated until products of conception were noted coming through the suction tubing. Sharp curettage was performed. Good hemostasis was noted. The uterine cavity was deemed to be empty. All instruments were removed. Sponge and instrument counts were correct. The patient went to the recovery room in stable condition.
== END 2019-06-08 12:10 | disposition home or self-care (01) ==
LOC: M SDC 08:49
PROVIDERS: ATTEND Specialist
DX: O02.1 Missed abortion (principal); D64.9 Anemia, unspecified; E03.9 Hypothyroidism, unspecified; Z79.899 Other long term (current) drug therapy; Z91.040 Latex allergy status; Z98.84 Bariatric surgery status
CPT/HCPCS: 36415; 59820; 85027; 88305; J1100; J1885; J2250; J2405; J3010

== ENCOUNTER → 2019-07-20 | Outpatient (REF) | payer OTHER ==
[~2019-07-20] MED LIST changes: -LR 1,000 ML IV ONE
[2019-07-20 18:15] LABS: HEMOGLOBIN A1c 4.9 %
[2019-07-20 18:17] LABS: FREE T4 1.21 NG/DL (0.76-1.46); THYROID STIMULATING HORMONE 0.919 uIU/ML (0.358-3.740)
== END ==
LOC: M PLALAB 15:52
PROVIDERS: ATTEND Obstetrics & Gynecology
DX: N96 Recurrent pregnancy loss (principal)

== ENCOUNTER → 2019-10-21 | Outpatient (CLI) | payer OTHER ==
[2019-10-21 15:56] LABS: FREE T4 0.91 NG/DL (0.76-1.46); THYROID STIMULATING HORMONE 3.75 uIU/ML (0.358-3.740)
== END ==
LOC: M PLALAB 13:19
PROVIDERS: ATTEND Nurse Practitioner Family
DX: E06.3 Autoimmune thyroiditis (principal)

== ENCOUNTER → 2019-11-08 | Outpatient (REF) | payer OTHER | LOC: M PLALAB 10:31 | PROVIDERS: ATTEND Advanced Practice Midwife | DX: O20.0 Threatened abortion (principal) ==

== ENCOUNTER → 2019-11-10 | Outpatient (CLI) | payer OTHER | LOC: M PLALAB 10:45 | PROVIDERS: ATTEND Advanced Practice Midwife | DX: O20.0 Threatened abortion (principal) ==

== ENCOUNTER → 2019-11-16 | Outpatient (CLI) | payer BC ==
--- NOTE | 2019-11-16 16:54 | REP ---
Clinical: Vaginal bleeding. Dating and viability. Technique: Transabdominal and transvaginal first trimester obstetrical ultrasound with color Doppler evaluation. Findings: Ultrasound examination demonstrates single live early intrauterine . Gestational sac with yolk sac and pole identified. CRL of 9 mm corresponds to 7 weeks 0 days gestational age with estimated date of delivery 07/04/2020. heart rate equals 143 beats per minute. No subchorionic hemorrhage or abnormality noted. Impression: Single live early intrauterine at 7 weeks 0 days gestational age. Complete anatomical assessment should be performed at 19-20 weeks.
== END ==
LOC: M WHC 14:58
PROVIDERS: ATTEND Advanced Practice Midwife
DX: O20.0 Threatened abortion (principal); Z3A.01 Less than 8 weeks gestation of pregnancy

== ENCOUNTER → 2019-11-16 | Outpatient (REF) | payer OTHER | LOC: M PLALAB 15:42 | PROVIDERS: ATTEND Advanced Practice Midwife | DX: O20.0 Threatened abortion (principal) ==

== ENCOUNTER → 2019-11-16 | Outpatient (CLI) | payer OTHER ==
[2019-11-16 18:36] LABS: FREE T4 1.2 NG/DL (0.76-1.46); THYROID STIMULATING HORMONE 1.98 uIU/ML (0.358-3.740)
== END ==
LOC: M PLALAB 15:43
PROVIDERS: ATTEND Nurse Practitioner Family
DX: E06.3 Autoimmune thyroiditis (principal)

== ENCOUNTER → 2019-12-20 | Outpatient (REF) | payer OTHER ==
[2020-01-29 22:08] LABS: FREE T4 1.09 NG/DL (0.76-1.46); THYROID STIMULATING HORMONE 1.86 uIU/ML (0.358-3.740)
== END ==
LOC: M PLALAB 09:48
PROVIDERS: ATTEND Nurse Practitioner Family
DX: E06.3 Autoimmune thyroiditis (principal)

== ENCOUNTER → 2019-12-20 | Outpatient (REF) | payer OTHER ==
[2020-01-16 19:55] LABS: BASO % 0.5 % (0.0-1.0); EOS # 0.2 10^3/uL (0.0-0.5); EOS % 2.9 % (0.0-3.0); HEMATOCRIT 37.7 % (36.0-47.0); HEMOGLOBIN 12.8 g/dl (12.0-15.5); LYMPH # 2.2 10^3/uL (1.5-5.0); LYMPH % 28.6 % (24.0-44.0); MEAN CORPUSCULAR HEMOGLOBIN 31.4 pg (27.0-33.0); MEAN CORPUSCULAR VOLUME 92.6 fl (80.0-96.0); MONO # 0.4 10^3/uL (0.0-0.8); MONO % 4.5 % (0.0-5.0); NEUTROPHILS % 63.2 % (36.0-66.0); PLATELET COUNT, AUTOMATED 303 10^3/uL (150-450); RED BLOOD COUNT 4.07 10^6/uL (4.00-5.40); WHITE BLOOD COUNT 7.8 10^3/uL (4.0-10.0)
[2020-01-16 19:57] LABS: HEMATOCRIT 37.7 % (36.0-47.0)
[2020-01-29 22:06] LABS: ALBUMIN 3.2 GM/DL (3.2-5.2); ALT/SGPT 20 U/L (12-78); BILIRUBIN,TOTAL 0.4 MG/DL (0.2-1.0); BLOOD UREA NITROGEN 7 MG/DL (7-18); CALCIUM LEVEL 9.1 MG/DL (8.5-10.1); CARBON DIOXIDE LEVEL 26 MEQ/L (21-32); CHLORIDE LEVEL 107 MEQ/L (98-107); CREATININE FOR GFR 0.69 MG/DL (0.55-1.30); FERRITIN 31 NG/ML (8-252); GLOMERULAR FILTRATION RATE > 60.0 (>60); GLUCOSE, FASTING 86 MG/DL (70-100); HEMOGLOBIN A1c 5.3 %; IRON (FE) 142 UG/DL (50-170); MAGNESIUM LEVEL 1.9 MG/DL (1.8-2.4); PERCENT SATURATION 53.8 % (13.2-45.0); PHOSPHORUS LEVEL 4.4 MG/DL (2.5-4.9); POTASSIUM SERUM 4.6 MEQ/L (3.5-5.1); SODIUM LEVEL 140 MEQ/L (136-145); TOTAL 25(OH) VITAMIN D 34.4 NG/ML (30.0-100.0); TOTAL IRON BINDING CAPACITY 264 UG/DL (250-450); TOTAL PROTEIN 6.5 GM/DL (6.4-8.2); VITAMIN B12 LEVEL 1143 PG/ML (247-911)
== END ==
LOC: M PLALAB 09:44
PROVIDERS: ATTEND Physician Assistant
DX: K91.2 Postsurgical malabsorption, not elsewhere classified (principal); Z98.84 Bariatric surgery status; E55.9 Vitamin D deficiency, unspecified; Z86.39 Personal history of other endocrine, nutritional and metabolic disease

== ENCOUNTER → 2020-01-21 | Outpatient (CLI) | payer OTHER ==
[2020-01-21 14:48] LABS: FREE T4 1.26 NG/DL (0.76-1.46); THYROID STIMULATING HORMONE 0.938 uIU/ML (0.358-3.740)
== END ==
LOC: M PLALAB 11:31
PROVIDERS: ATTEND Nurse Practitioner Family
DX: E06.3 Autoimmune thyroiditis (principal)

== ENCOUNTER → 2020-02-03 | Outpatient (CLI) | payer BC ==
--- NOTE | 2020-02-18 07:41 | REP ---
OBSTETRICAL ULTRASOUND: 02/03/20 CLINICAL: Anatomical assessment. TECHNIQUE: Transabdominal obstetric ultrasound with color Doppler evaluation. FINDINGS: Ultrasound examination demonstrates a single live intrauterine in transverse lie with head to maternal right. Placenta noted posteriorly and grade 0 without evidence for placenta previa or abruption. Amniotic fluid volume is normal. The cervix measures 3.3cm in length and appears closed. No evidence for nuchal cord. Gestational age by LMP 18 weeks 2 days with estimated date of delivery 07/04/20. Gestational age by current measurements 18 weeks 3 days with estimated date of delivery 07/03/20. HEART RATE: 147 bpm HC/AC Ratio 1.18 Estimated weight: 286g (48th percentile) Anatomical assessment demonstrates normal cranium, choroid plexus, ventricles, cerebellum/posterior fossa, facial profile, diaphragm, stomach, three vessel cord/cord insertion, kidneys/bladder, spine and extremities. Limited evaluation of the nose/lips, four chamber heart and ventricular outflow tracts noted. IMPRESSION: Single live intrauterine in traverse lie demonstrating appropriate estimated weight and growth. Anatomical limitations as noted above may warrant reevaluation and follow-up. No gross abnormalities are identified. MTDD
== END ==
LOC: M WHC 09:55
PROVIDERS: ATTEND Advanced Practice Midwife
DX: Z34.02 Encounter for supervision of normal first pregnancy, second trimester (principal); Z3A.18 18 weeks gestation of pregnancy

== ENCOUNTER → 2020-02-17 | Outpatient (CLI) | payer BC ==
[2020-02-17 14:35] LABS: FREE T4 1.29 NG/DL (0.76-1.46); THYROID STIMULATING HORMONE 0.599 uIU/ML (0.358-3.740)
== END ==
LOC: M PLALAB 11:12
PROVIDERS: ATTEND Nurse Practitioner Family
DX: E06.3 Autoimmune thyroiditis (principal)

== ENCOUNTER → 2020-02-24 | Outpatient (CLI) | payer BC ==
--- NOTE | 2020-02-29 10:18 | REP ---
OB ULTRASOUND HISTORY: Follow-up anatomy. COMPARISON: 02/03/2020. TECHNIQUE: Real-time sonographic evaluation of the gravid uterus is performed. FINDINGS: There is a single living intrauterine gestation. Estimated gestational age 21 weeks 2 days, estimated date of confinement (EDC) 07/04/2020. Todays measurements indicate appropriate growth. BIOMETRY AND GROWTH: BPD 51 mm 21 weeks 4 days 58th percentile HC 199 mm 22 weeks 0 days 73rd percentile AC 167 mm 21 weeks 5 days 59th percentile Femur length 38 mm 22 weeks 2 days 74th percentile HC/AC ratio 1.19 Normal 1.05 to 1.24 Estimated weight 464 grams 78th percentile position is cephalic. Placenta is posterior and grade 1 with no previa or abruption. heart rate is 143 beats per minute. The facial structures, four chamber heart, and ventricular outflow tracts are visualized and are grossly unremarkable. MTDD
== END ==
LOC: M WHC 08:25
PROVIDERS: ATTEND Advanced Practice Midwife
DX: O34.219 Maternal care for unspecified type scar from previous cesarean delivery (principal); Z3A.21 21 weeks gestation of pregnancy

== ENCOUNTER → 2020-03-20 | Outpatient (CLI) | payer BC ==
[2020-03-20 16:55] LABS: FREE T4 1.13 NG/DL (0.76-1.46); THYROID STIMULATING HORMONE 0.61 uIU/ML (0.358-3.740)
== END ==
LOC: M PLALAB 09:39
PROVIDERS: ATTEND Nurse Practitioner Family
DX: E06.3 Autoimmune thyroiditis (principal)

== ENCOUNTER → 2020-03-22 | Outpatient (CLI) | payer BC, OTHER ==
[2020-03-22 14:10] LABS: HEMATOCRIT 39.4 % (36.0-47.0); MEAN CORPUSCULAR HEMOGLOBIN 31.5 pg (27.0-33.0); MEAN CORPUSCULAR VOLUME 95.4 fl (80.0-96.0); PLATELET COUNT, AUTOMATED 275 10^3/uL (150-450); RED BLOOD COUNT 4.13 10^6/uL (4.00-5.40); WHITE BLOOD COUNT 7.1 10^3/uL (4.0-10.0)
== END ==
LOC: M PLALAB 09:58
PROVIDERS: ATTEND Specialist
DX: Z34.82 Encounter for supervision of other normal pregnancy, second trimester (principal)

== ENCOUNTER → 2020-04-12 | Outpatient (CLI) | payer BC, OTHER ==
[2020-04-12 16:28] LABS: FREE T4 1.29 NG/DL (0.76-1.46); THYROID STIMULATING HORMONE 0.38 uIU/ML (0.358-3.740)
== END ==
LOC: M PLALAB 13:22
PROVIDERS: ATTEND Nurse Practitioner Family
DX: E06.3 Autoimmune thyroiditis (principal)

== ENCOUNTER → 2020-05-23 | Outpatient (CLI) | payer BC ==
--- NOTE | 2020-05-23 12:04 | REP ---
INDICATION: O34.219 GROWTH,SPENCER. COMPARISON: 02/24/2020. TECHNIQUE: Real-time sonographic evaluation of the gravid uterus performed. FINDINGS: Estimated gestational age is34 weeks 0 days, EDC 07/04/2020. Today's measurements indicate appropriate growth. Presentation: Cephalic Placenta posterior. heart rate is recorded at 135 beats per minute. Amniotic fluid is subjectively normal. SPENCER 14.5, normal range 8.1-24.8. Closed cervical length is measured at 3.3 cm. Biometry chart: BPD: 89 mm, 35 weeks 5 days, 76th percentile. HC: 325 mm, 36 weeks 5 days, over 95th percentile AC: 298 mm, 33 weeks 5 days, 46th percentile Femur length: 69 mm, 35 weeks 3 days, 71st percentile HC to AC ratio: 1.09, normal range 0.94-1.13. Estimated weight: 2495g, 65th percentile. IMPRESSION: Viable single intrauterine gestation as above. <Electronically signed by Jose Alberto Rodriguez > 05/23/20 1200
== END ==
LOC: M WHC 10:33
PROVIDERS: ATTEND Advanced Practice Midwife
DX: O34.219 Maternal care for unspecified type scar from previous cesarean delivery (principal); Z3A.34 34 weeks gestation of pregnancy

== ENCOUNTER → 2020-06-06 | Outpatient (REF) | payer OTHER | LOC: M PLALAB 15:09 | PROVIDERS: ATTEND Obstetrics & Gynecology | DX: Z3A.36 36 weeks gestation of pregnancy (principal) ==

== ENCOUNTER → 2020-06-08 | Outpatient (REF) | payer OTHER | LOC: M SFHCWAGY 13:29 | PROVIDERS: ATTEND Obstetrics & Gynecology | DX: Z34.93 Encounter for supervision of normal pregnancy, unspecified, third trimester (principal); Z3A.36 36 weeks gestation of pregnancy ==

== ENCOUNTER 2020-06-28 20:03 | Inpatient (IN) | payer BC, OTHER ==
[~2020-06-28] VITALS: Ht 175.3 cm; Wt 102.0 kg
[2020-06-28 20:29] VITALS: BP 111/70
--- OUTSIDE RECORDS SUMMARY | 2020-06-28 21:10 | CCD ---
Author Author [facility] Organization [facility] Address Unknown Phone Unavailable Care Team Providers Care Manager Labor Delivery Name Role Phone Jesus Buchanan Unavailable PROBLEMS Type Condition ICD9-CM Code [id number] Code Onset Dates Condition S tatus SNOMED Code Notes Problem Supervision of other normal Z34.80 Ac tive 039714025 Problem Bariatric surgery status complicating , second trimester O99.842 Active 473217031 ALLERGIES Allergen (clinical drug ingredient) Drug/Non Drug Allergy do cumented on EMR Reaction Allergy Type Onset Date Status Latex Unknown Non Drug Allergy Active ENCOUNTERS from 1987 to 2020-04-07 Encounter Location Date Provider Diagnosis [facility] [address] [place] [id number] Mar, Jesus Buchanan Bariatric surgery st atus complicating , second trimester O99.842 ; Previous delivery affecting O34.219 and 25 weeks gestation of Z3A.25 IMMUNIZATIONS No Information SOCIAL HISTORY Tobacco Use: Social History Observation Description Date Details (start date - stop date) Never Smoker Sex Assigned At : Social History Observation Description Sex Assigned At Unknown Education: Question Answer Notes Level of Education: Not Finished College Language: Question Answer Notes Languages spoken: Vietnamese Alcohol Screening: Question Answer Notes Did you have a drink containing alcohol in the past year? No Points 0 Interpretation Negative Tobacco Use: Question Answer Notes Are you a: never smoker REASON FOR REFERRAL No Information VITAL SIGNS Weight 207.6 lbs Mar, Weight-kg 94.17 kg Mar, Height 69 in Mar, BMI 30.657 kg/m2 Mar, Blood pressure systolic 112 mm Hg Mar, Blood pressure diastolic 82 mm Hg Mar, MEDICATIONS Medication SIG (Take, Route, Frequency, Duration) Notes Start Da te End Date Status Aspirin 81 81 MG 1 tablet Orally Once a day Active Lancets - as directed O99.840 four times daily for 30 days Mar, Active Glucose Monitor - as directed O99.840 four times daily for 30 da ys Mar, Active Vitamin 27-0.8 MG 1 tablet orally bid Active Alcohol Pads 70 % as directed O99.840 four times daily for 30 da ys Mar, Active Levothyroxine Sodium 175 MCG 1 tablet in the morning o n an empty stomach Orally Once a day Active Ferrous Fumarate 325 (106 Fe) MG as directed Orally Active Prometrium 100 MG 1 capsule at bedtime every cycle per vag alfa Once a day for 30 Active Vitamin D (Ergocalciferol) 50 MCG (2000 UT) 1 capsule Orally 10,000 d ail Active Test Strips - as directed O99.840 four times daily for 30 days Mar, Active PROCEDURES No Information RESULTS Component Value Reference Range CBC - Complete Blood Count Reviewed date:03/23/2020 07:17:29 Interpretation: Performing Lab:[facility], [facility] [address] [facility] [id number] , ,[facility] WHITE BLOOD COUNT 7.1 4.0-10.0 RED BLOOD COUNT 4.13 4.00-5.40 HEMOGLOBIN 13.0 12.0-15.5 HEMATOCRIT 39.4 36.0-47.0 MEAN CORPUSCULAR VOLUME 95.4 80.0-96.0 MEAN CORPUSCULAR HEMOGLOBIN 31.5 27.0-33.0 MEAN CORPUSCULAR HGB CONC 33.0 32.0-36.5 RED CELL DISTRIBUTION WIDTH 12.4 11.5-14.5 PLATELET COUNT, AUTOMATED 275 150-450 REASON FOR VISIT 4WK PN MEDICAL (GENERAL) HISTORY Type Description Date Medical History autoimmune thyroiditis Medical History Hx of post depression Surgical History gastric bypass Surgical History C section Surgical History D&C Hospitalization History childbirth Hospitalization History gastric bypass Goals Section No Information Health Concerns No Information MEDICAL EQUIPMENT No Information MENTAL STATUS No Information FUNCTIONAL STATUS No Information ASSESSMENTS Encounter Date Diagnosis Assessment Notes Treatment Notes Treatm ent Clinical Notes Mar, Bariatric surgery status com plicating , second trimester (ICD-10 - O99.842) Mar, Previous delivery affecting pre gnancy (ICD-10 - O34.219) Mar, 25 weeks gestation of (ICD-10 - Z3A.25 ) PLAN OF TREATMENT Medication Medication Name Sig Start Date Stop Date Test Strips - as directed O99.840 four times daily for 30 days Mar, Alcohol Pads 70 % as directed O99.840 four times daily for 30 da ys Mar, Glucose Monitor - as directed O99.840 four times daily for 30 da ys Mar, Lancets - as directed O99.840 four times daily for 30 days Mar, Treatment Notes Test Name Order Date AB SCREEN (INDIRECT CATY)GEL Antibody Screen 2020-03 Type and Screen (D Rh Antibody Screen) 2020-04-07 Next Appt Details 4 Weeks Reason:PN Provider Name:Ladi Higuera, 2020-04-20 08:40:00 AM, [address] [place] [address], [phone], Provider Name:Royer Velasquez, 12:45:00 AM, [address] [place] [address], [phone], Provider Name:Royer Velasquez, 07:30:00 AM, [address] [place] [address], [phone], Provider Name:Ladi Higuera, 2020-07-11 07:30:00 AM, [address] [place] [address], [phone], Provider Name:Royer Velasquez, 11:40:00 AM, [address] [place] [address], [phone], Provider Name:Royer Velasquez, 10:20:00 AM, [address] [place] [address], [phone], Follow Up:4 WeeksPN Insurance Providers Payer Name Payer Address Payer Phone Insured Name Patient Relati onship to Insured Coverage Start Date Coverage End Date [facility] [address] [facility] [id number] STEFANY HARRISON self
--- OUTSIDE RECORDS SUMMARY | 2020-06-28 21:10 | CCD ---
Author Author [facility] Organization [facility] Address Unknown Phone Unavailable Care Team Providers Care Rivet Bucker Name Role Phone Kaitlin Lo Unavailable PROBLEMS Type Condition ICD9-CM Code [id number] Code Onset Dates Condition S tatus W/U Status Risk SNOMED Code Notes Problem Previous gastric bypass affe cting in third trimester, antepartum O99.843 Active confirmed 120213208 Problem Maternal care due to low tra nsverse uterine scar from previous delivery O34.211 Active confirmed Problem Supervision of other normal Z34.80 Ac tive confirm 249465977 Problem Bariatric surgery status complicating , second trimester O99.842 Active confirmed 706665174 ALLERGIES Allergen (clinical drug ingredient) Drug/Non Drug Allergy do cumented on EMR Reaction Allergy Type Onset Date Status Latex Unknown Non Drug Allergy Active ENCOUNTERS from 1987 to 2020-06-19 Encounter Location Date Provider Diagnosis [facility] [address] [place] [phone] May, Kaitlin Lo 36 weeks gestation o f Z3A.36 ; Maternal care due to low transverse uterine scar from previous delivery O34.211 ; Hypothyroidism affecting O99.280 ; Previous gastric bypass a ffecting in third trimester, antepartum O99.843 and related exhaustion and fatigue, third trimester O26.813 IMMUNIZATIONS Vaccine Route Administration Date Status TDAP 0.5mL (Boostrix) IM Intramuscular Apr 20, 2020 Administe red Influenza (6mo & up) Fluzone IM Intramuscular Apr 20, 2020 Ad ministered SOCIAL HISTORY Tobacco Use: Social History Observation Description Date Details (start date - stop date) Never Smoker Sex Assigned At : Social History Observation Description Sex Assigned At Unknown Education: Question Answer Notes Level of Education: Not Finished College Language: Question Answer Notes Languages spoken: Angolan Alcohol Screening: Question Answer Notes Did you have a drink containing alcohol in the past year? No Points 0 Interpretation Negative Tobacco Use: Question Answer Notes Are you a: never smoker REASON FOR REFERRAL No Information VITAL SIGNS Weight 223 lbs May, Height 69 in May, BMI 32.931 kg/m2 May, Blood pressure systolic 102 mm Hg May, Blood pressure diastolic 70 mm Hg May, MEDICATIONS Medication SIG (Take, Route, Frequency, Duration) Notes Start Da te End Date Status Vitamin 27-0.8 MG 1 tablet orally bid Active Aspirin 81 81 MG 1 tablet Orally Once a day Active Ferrous Fumarate 325 (106 Fe) MG as directed Orally Active Lancets - as directed O99.840 four times daily for 30 days Mar, Not-Taking Test Strips - as directed O99.840 four times daily for 30 days Mar, Not-Taking Prometrium 100 MG 1 capsule at bedtime every cycle per vag alfa Once a day for 30 Not-Taking Levothyroxine Sodium 175 MCG 1 tablet in the morning o n an empty stomach Orally Once a day Active Vitamin D (Ergocalciferol) 50 MCG (1999 UT) 1 capsule Orally 10,000 d ail Active Alcohol Pads 70 % as directed O99.840 four times daily for 30 da ys Mar, Not-Taking Glucose Monitor - as directed O99.840 four times daily for 30 da ys Mar, Not-Taking PROCEDURES No Information RESULTS Component Value Reference Range GROUP B STREP CULTURE Reviewed date:06/12/2020 08:19:24 Interpretation: Performing Lab:[facility], [facility] [address] [facility] [address] [address] , [place] [address] REASON FOR VISIT 2WK PN MEDICAL (GENERAL) HISTORY Type Description Date Medical History autoimmune thyroiditis Medical History Hx of post depression Surgical History gastric bypass 2018 Surgical History C section Surgical History D&C Hospitalization History childbirth Hospitalization History gastric bypass Goals Section No Information Health Concerns No Information MEDICAL EQUIPMENT No Information MENTAL STATUS No Information FUNCTIONAL STATUS No Information ASSESSMENTS Encounter Date Diagnosis Assessment Notes Treatment Notes Treatm ent Clinical Notes May, 36 weeks gestation of (ICD-10 - Z3A.36 ) May, Maternal care due to low tra nsverse uterine scar from previous delivery (ICD-10 - O34.211) May, Hypothyroidism affecting (ICD-10 - O99 .280) May, Previous gastric bypass affe cting in third trimester, antepartum (ICD-10 - O99.843) May, related exhaustion and fatigue, third trimester (ICD-10 - O26.813) PLAN OF TREATMENT Next Appt Details 2 Weeks Reason:PN Provider Name:Ladi Higuera, 2020-06-22 01:00:00 PM, [address] [place] [address], [phone], Provider Name:Royer Velasquez, 12:45:00 AM, [address] [place] [address], [phone], Provider Name:Royer Velasquez, 07:30:00 AM, [address] [place] [address], [phone], Provider Name:Ladi Higuera, 2020-07-11 07:30:00 AM, [address] [place] [address], [phone], Provider Name:Royer Velasquez, 11:40:00 AM, [address] [place] [address], [phone], Provider Name:Royer Velasquez, 10:20:00 AM, [address] [place] [address], [phone], Follow Up:2 WeeksPN Insurance Providers Payer Name Payer Address Payer Phone Insured Name Patient Relati onship to Insured Coverage Start Date Coverage End Date [facility] [address] [facility] [id number] STEFANY HARRISON self
--- OUTSIDE RECORDS SUMMARY | 2020-06-28 21:10 | CCD ---
Author Author [facility] Organization [facility] Address Unknown Phone Unavailable Care Team Providers Care Van Loader Name Role Phone Royer Velasquez Unavailable PROBLEMS Type Condition ICD9-CM Code [id number] Code Onset Dates Condition S tatus SNOMED Code Notes Problem Supervision of other normal Z34.80 Ac tive 123033185 Problem Bariatric surgery status complicating , second trimester O99.842 Active 924943122 ALLERGIES Allergen (clinical drug ingredient) Drug/Non Drug Allergy do cumented on EMR Reaction Allergy Type Onset Date Status Latex Unknown Non Drug Allergy Active ENCOUNTERS from 1987 to 2020-04-08 Encounter Location Date Provider Diagnosis [facility] [address] [place] [phone] Mar, Royer Velasquez IMMUNIZATIONS No Information SOCIAL HISTORY Tobacco Use: Social History Observation Description Date Details (start date - stop date) Never Smoker Sex Assigned At : Social History Observation Description Sex Assigned At Unknown Education: Question Answer Notes Level of Education: Not Finished College Language: Question Answer Notes Languages spoken: Nigerian Alcohol Screening: Question Answer Notes Did you have a drink containing alcohol in the past year? No Points 0 Interpretation Negative Tobacco Use: Question Answer Notes Are you a: never smoker REASON FOR REFERRAL No Information VITAL SIGNS No information MEDICATIONS Medication SIG (Take, Route, Frequency, Duration) [...] days Mar, Active PROCEDURES No Information RESULTS No Results REASON FOR VISIT AUTHORIZATION MEDICAL (GENERAL) HISTORY Type Description Date Medical History autoimmune thyroiditis Medical History Hx of post depression Surgical History gastric bypass Surgical History C section Surgical History D&C Hospitalization History childbirth Hospitalization History gastric bypass Goals Section No Information Health Concerns No Information MEDICAL EQUIPMENT No Information MENTAL STATUS No Information FUNCTIONAL STATUS No Information ASSESSMENTS No Information PLAN OF TREATMENT Medication Medication Name Sig [...] four times daily for 30 days Mar, Next Appt Details Provider Name:Ladi Higuera, 2020-04-20 08:40:00 AM, [address] [place] [address], [phone], Provider Name:Royer Velasquez, 12:45:00 AM, [address] [place] [address], [phone], Provider Name:Royer Velasquez, 07:30:00 AM, [address] [place] [address], [phone], Provider Name:Ladi Higuera, 2020-07-11 07:30:00 AM, [address] [place] [address], [phone], Provider Name:Royer Velasquez, 11:40:00 AM, [address] [place], [phone], Provider Name:Royer Velasquez, 10:20:00 AM, [address] [place], [phone], Insurance Providers Payer Name Payer Address Payer Phone Insured Name Patient Relati onship to Insured Coverage Start Date Coverage End Date [facility] [address] [facility] [id number] STEFANY HARRISON self
--- OUTSIDE RECORDS SUMMARY | 2020-06-28 21:10 | CCD ---
Author Author [facility] Organization [facility] Address Unknown Phone Unavailable Care Team Providers Care Film Or Tape Librarian Name Role Phone Andry Woods Unavailable PROBLEMS Type Condition ICD9-CM Code [id number] Code Onset Dates Condition S tatus SNOMED Code Notes Problem Supervision of other normal Z34.80 Ac tive 296174939 Problem Bariatric surgery status complicating , second trimester O99.842 Active 127980655 ALLERGIES Allergen (clinical drug ingredient) Drug/Non Drug Allergy do cumented on EMR Reaction Allergy Type Onset Date Status Latex Unknown Non Drug Allergy Active ENCOUNTERS from 1987 to 2020-05-09 Encounter Location Date Provider Diagnosis [facility] [address] [place] [phone] Apr, Andry Woods Previous de livery, antepartum O34.219 and 31 weeks gestation of Z3A.31 IMMUNIZATIONS Vaccine Route Administration Date Status TDAP [...] College Language: Question Answer Notes Languages spoken: Danish Alcohol Screening: Question Answer Notes Did you have a drink containing alcohol in the past year? No Points 0 Interpretation Negative Tobacco Use: Question Answer Notes Are you a: never smoker REASON FOR REFERRAL No Information VITAL SIGNS Weight 215.0 lbs Apr, Weight-kg 97.52 kg Apr, Height 69 in Apr, BMI 31.75 kg/m2 Apr, Blood pressure systolic 100 mm Hg Apr, Blood pressure diastolic 68 mm Hg Apr, MEDICATIONS Medication SIG (Take, Route, Frequency, Duration) Notes Start Da te End Date Status Lancets - as directed O99.840 four times daily for 30 days Mar, Not-Taking Ferrous Fumarate 325 (106 Fe) MG as directed Orally Active Vitamin D (Ergocalciferol) 50 MCG (2000 UT) 1 capsule Orally 10,000 d ail Active Alcohol Pads 70 % as directed O99.840 four times daily for 30 da ys Mar, Not-Taking Levothyroxine Sodium 175 MCG 1 tablet in the morning o n an empty stomach Orally Once a day Active Aspirin 81 81 MG 1 tablet Orally Once a day Active Glucose Monitor - as directed O99.840 four times daily for 30 da ys Mar, Not-Taking Test Strips - as directed O99.840 four times daily for 30 days Mar, Not-Taking Vitamin 27-0.8 MG 1 tablet orally bid Active Prometrium 100 MG 1 capsule at bedtime every cycle per vag alfa Once a day for 30 Not-Taking PROCEDURES No Information RESULTS No Results REASON FOR VISIT 4WK PN MEDICAL (GENERAL) [...] Notes Treatment Notes Treatm ent Clinical Notes Apr, Previous delivery, antepartum (ICD-10 - O34.219) Apr, 31 weeks gestation of (ICD-10 - Z3A.31 ) PLAN OF TREATMENT Treatment Notes Test Name Order Date [facility] OBS FOLLOW UP OR REPEAT 2020-05-09 Next Appt Details 2 Weeks Reason: Provider Name:Maria Fernanda Pollock, 2020-05-24 08:40:00 AM, [address] [place] [address], [phone], Provider Name:Royer Velasquez, 12:45:00 AM, [address] [place] [address], [phone], Provider Name:Royer Velasquez, 07:30:00 AM, [address] [place] [address], [phone], Provider Name:Ladi Higuera, 2020-07-11 07:30:00 AM, [address] [place] [address], [phone], Provider Name:Royer Velasquez, 11:40:00 AM, [address] [place] [address], [phone], Provider Name:Royer Velasquez, 10:20:00 AM, [address] [place] [address], [phone], Insurance Providers Payer Name Payer Address Payer Phone Insured Name Patient Relati onship to Insured Coverage Start Date Coverage End Date [facility] [address] [facility] [id number] STEFANY HARRISON self
--- OUTSIDE RECORDS SUMMARY | 2020-06-28 21:10 | CCD ---
Author Author [facility] Organization [facility] Address Unknown Phone Unavailable Care Team Providers Care Furnace Mechanic Helper Name Role Phone Ladi Higuera Unavailable PROBLEMS Type Condition ICD9-CM Code [id number] Code Onset Dates Condition S tatus SNOMED Code Notes Problem Supervision of other normal Z34.80 Ac tive 362907338 Problem Bariatric surgery status complicating , second trimester O99.842 Active 653945345 ALLERGIES Allergen (clinical drug ingredient) Drug/Non Drug Allergy do cumented on EMR Reaction Allergy Type Onset Date Status Latex Unknown Non Drug Allergy Active ENCOUNTERS from 1987 to 2020-05-04 Encounter Location Date Provider Diagnosis [facility] [address] [place] [address] Apr, Ladi Higuera Maternal care due to low transverse uterine scar from previous delivery O34.211 ; 29 weeks gestation of Z3A.29 and Encounter for immunization Z23 IMMUNIZATIONS Vaccine Route Administration Date Status TDAP [...] College Language: Question Answer Notes Languages spoken: Amharic Alcohol Screening: Question Answer Notes Did you have a drink containing alcohol in the past year? No Points 0 Interpretation Negative Tobacco Use: Question Answer Notes Are you a: never smoker REASON FOR REFERRAL No Information VITAL SIGNS Weight 212.4 lbs Apr, Height 69 in Apr, BMI 31.366 kg/m2 Apr, Blood pressure systolic 110 mm Hg Apr, Blood pressure diastolic 70 mm Hg Apr, MEDICATIONS Medication SIG (Take, Route, Frequency, Duration) Notes Start Da te End Date Status Ferrous Fumarate 325 (106 Fe) MG as directed Orally Active Levothyroxine Sodium 175 MCG 1 tablet in the morning o n an empty stomach Orally Once a day Active Vitamin 27-0.8 MG 1 tablet orally bid Active Lancets - as directed O99.840 four times daily for 30 days Mar, Active Glucose Monitor - as directed O99.840 four times daily for 30 da ys Mar, Active Alcohol Pads 70 % as directed O99.840 four times daily for 30 da ys Mar, Active Aspirin 81 81 MG 1 tablet Orally Once a day Active Vitamin D (Ergocalciferol) 50 MCG (2000 UT) 1 capsule Orally 10,000 d ail Active Prometrium 100 MG 1 capsule at bedtime every cycle per vag alfa Once a day for 30 Active Test Strips - as directed O99.840 four times daily for 30 days Mar, Active PROCEDURES from 1987 to 2020-05-04 Procedure Date Ordered Result Body Site Immunization: Fluzone (6mo & older) 0.5mL IM (Influenza) 2020-04 N/A Immunization: Boostrix 0.5mL IM (TDAP) 2020-04-20 N/A RESULTS No Results REASON FOR VISIT 4WK [...] Treatment Notes Treatm ent Clinical Notes Apr, Maternal care due to low tra nsverse uterine scar from previous delivery (ICD-10 - O34.211) Apr, 29 weeks gestation of (ICD-10 - Z3A.29 ) Apr, Encounter for immunization (ICD-10 - Z23) PLAN OF TREATMENT Next Appt Details 2 Weeks Reason: Provider Name:Andry Woods, 2020-05-08 1 1:20:00 AM, [address] [place] [address], [phone], Provider Name:Royer Velasquez, 12:45:00 AM, [address] [place] [address], [phone], Provider Name:Royer Velasquez, 07:30:00 AM, [address] [place] [address], [phone], Provider Name:Ladi Higuera, 2020-07-11 07:30:00 AM, [address] [place] [address], [phone], Provider Name:Royer Velasquez, 11:40:00 AM, [address] [place] [address], [phone], Provider Name:Royer Velasquez, 10:20:00 AM, [address] [place] [address], [phone], Follow Up:2 Weeksprenatal Insurance Providers Payer Name Payer Address Payer Phone Insured Name Patient Relati onship to Insured Coverage Start Date Coverage End Date [facility] [address] [facility] [id number] STEFANY HARRISON self
--- OUTSIDE RECORDS SUMMARY | 2020-06-28 21:10 | CCD ---
Author Author [facility] Organization [facility] Address Unknown Phone Unavailable Care Team Providers Care Sausage Wrapper Name Role Phone Maria Fernanda Pollock Unavailable PROBLEMS Type Condition ICD9-CM Code [id number] Code Onset Dates Condition S tatus SNOMED Code Notes Problem Previous gastric bypass affe cting in third trimester, antepartum O99.843 Active 039238224 Problem Maternal care due to low tra nsverse uterine scar from previous delivery O34.211 Active Problem Supervision of other normal Z34.80 Ac tive 645280288 Problem Bariatric surgery status complicating , second trimester O99.842 Active 695706463 ALLERGIES Allergen (clinical drug ingredient) Drug/Non Drug Allergy do cumented on EMR Reaction Allergy Type Onset Date Status Latex Unknown Non Drug Allergy Active ENCOUNTERS from 1987 to 2020-05-27 Encounter Location Date Provider Diagnosis [facility] [address] [place] [phone] May, Maria Fernanda Pollock Maternal care due to low transverse uterine scar from previous delivery O34.211 ; Previous gastric bypass affecting in third trimester, antepartum O99.843 and 34 weeks gestation of Z3A.34 IMMUNIZATIONS Vaccine Route Administration Date Status TDAP [...] College Language: Question Answer Notes Languages spoken: Nepali Alcohol Screening: Question Answer Notes Did you have a drink containing alcohol in the past year? No Points 0 Interpretation Negative Tobacco Use: Question Answer Notes Are you a: never smoker REASON FOR REFERRAL No Information VITAL SIGNS Weight 219 lbs May, Weight-kg 99.34 kg May, Height 69 in May, BMI 32.341 kg/m2 May, Blood pressure systolic 94 mm Hg May, Blood pressure diastolic 68 mm Hg May, MEDICATIONS Medication SIG (Take, Route, Frequency, Duration) Notes Start Da te End Date Status Vitamin 27-0.8 MG 1 tablet orally bid Active Aspirin 81 81 MG 1 tablet Orally Once a day Active Prometrium 100 MG 1 capsule at bedtime every cycle per vag alfa Once a day for 30 Not-Taking Alcohol Pads 70 % as directed O99.840 four times daily for 30 da ys Mar, Not-Taking Test Strips - as directed O99.840 four times daily for 30 days Mar, Not-Taking Ferrous Fumarate 325 (106 Fe) MG as directed Orally Active Glucose Monitor - as directed O99.840 four times daily for 30 da ys Mar, Not-Taking Levothyroxine Sodium 175 MCG 1 tablet in the morning o n an empty stomach Orally Once a day Active Lancets - as directed O99.840 four times daily for 30 days Mar, Not-Taking Vitamin D (Ergocalciferol) 50 MCG (2000 UT) 1 capsule Orally 10,000 d ail Active PROCEDURES No Information RESULTS No Results REASON FOR VISIT 2WK PN MEDICAL (GENERAL) [...] Treatment Notes Treatm ent Clinical Notes May, Maternal care due to low tra nsverse uterine scar from previous delivery (ICD-10 - O34.211) May, Previous gastric bypass affe cting in third trimester, antepartum (ICD-10 - O99.843) May, 34 weeks gestation of (ICD-10 - Z3A.34 ) PLAN OF TREATMENT Next Appt Details 2 Weeks Reason: Provider Name:Kaitlin Lo, 2020-05 08:40:00 AM, [address] [place] [address], [phone], Provider Name:Royer Velasquez, 12:45:00 AM, [address] [place] [address], [phone], Provider Name:Royer Velasquez, 07:30:00 AM, [address] [place] [address], [phone], Provider Name:Ladi Higuera, 2020-07-11 07:30:00 AM, [address] [place] [address], [phone], Provider Name:Royer Velasquez, 11:40:00 AM, [address] [place] [address], [phone], Provider Name:Royer Velasquez, 10:20:00 AM, [address] [place] [address], [phone], Follow Up:2 WeeksPrenatal Insurance Providers Payer Name Payer Address Payer Phone Insured Name Patient Relati onship to Insured Coverage Start Date Coverage End Date [facility] [address] [facility] [id number] STEFANY HARRISON self
--- OUTSIDE RECORDS SUMMARY | 2020-06-28 21:10 | CCD | Continuity of Care Document ---
Author Author Germania EMERSON ASSISTANT REAL ESTATE MANAGER Organization Unknown Address [address] [place] [id number] Phone [phone] Care Team Providers Care Taker Away Name Role Phone Darcy Molina MD [facility] [phone] Problems Active Problems Provider Date 26 weeks gestation of Annmarie Jacques PA-C O nset: 08/20/2016 Superficial thrombophlebitis in , third trime ster Annmarie Jacques PA-C Onset: 08/20/2016 20 weeks gestation of Annmarie Jacques PA-C O nset: 07/09/2016 Endocrine, nutritional and metabolic dis eases complicating , second trimester Annmarie Jacques PA-C Onset: 07/09/2016 14 weeks gestation of [place] Lazaro nset: 05/28/2016 Less than 8 weeks gestation of Annmarie banerjee PA-C Onset: 04/16/2016 Endocrine, nutritional and metabolic dis eases complicating , first trimester Annmarie Jacques PA-C Onset: 04/16/2016 Syd thyroiditis Annmarie Jacques PA-C Onset: 03/20 Hypothyroidism Rajwinder Temple MD Onset: 08/01/2015 thyroiditis Rajwinder Temple MD Onset: 08/01/2015 Social History Type Date Description Comments Sex Unknown Tobacco Use Start: Unknown Never Smoked Cigarettes ETOH Use Never used alcohol Tobacco Use Start: Unknown Patient has never smoked Smoking Status Reviewed: 03/22/20 Patient has never smoked Allergies, Adverse Reactions, Alerts Active Allergies Reaction Severity Comments Date Latex rash 07/25/2015 Medications Active Medications SIG Qnty Indications Ordering Provide r Date Levothyroxine Sodium 175mcg Tablet s take one tablet by mouth every day 30tabs O90.5 Rosangela Emerson, TAWANNA 10/25/2019 Vitamin D3 Maximum Strength [id number] Capsules 1 by mouth every day Unknown 000 Vitamin B12 1000mcg Tablets ER 1 by mouth every day Unknown Ferrous Fumarate 324(106Fe) mg Tab lets 1 po qd Unknown Calcium Citrate Chewy Bite [id number] Chewtabs 2 po qd Unknown 27-0.8mg Tablets 1 tabs po qd Unknown Aspirin [address] 1 by mouth every day Unknown Immunizations Description No Information Available Vital Signs Date Vital Result Comment 03/22/2020 10:31am BP Systolic 126 mmHg BP Diastolic 70 mmHg Heart Rate 70 /min Body Temperature 97.3 F Height 68.5 inches 5'8.50" Weight 207.38 lb BMI (Body Mass Index) 31.1 kg/m2 O2 % BldC Oximetry 98 % 02/22/2020 8:35am BP Systolic 100 mmHg BP Diastolic 72 mmHg Heart Rate 72 /min Body Temperature 97.1 F Height 68.5 inches 5'8.50" Weight 199.00 lb BMI (Body Mass Index) 29.8 kg/m2 Results Test Acquired Date Facility Test Result H/L Range Note FT4&TSH Panel 04/12/2020 [facility] ntr [address] [place] [address] (315)- - Thyroid Stimulating Hormone 0.380 uIU/ML Normal 0.358- 3.740 Free T4 1.29 ng/dL Normal 0.76-1.46 FT4&TSH Panel 03/20/2020 [facility] n[facility] [address] [place] [address] (315)- - Thyroid Stimulating Hormone 0.610 uIU/ML Normal 0.358- 3.740 Free T4 1.13 ng/dL Normal 0.76-1.46 Laboratory test finding 02/17/2020 [facility] Cent[facility] [address] [place] [address] (315)- - Thyroid Stimulating Hormone 0.599 uIU/ML Normal 0.358- 3.740 1 Free T4 1.29 ng/dL Normal 0.76-1.46 2 FT4&TSH Panel 01/21/2020 [facility] ntr [address] [place] [address] (315)- - Thyroid Stimulating Hormone 0.938 uIU/ML Normal 0.358- 3.740 Free T4 1.26 ng/dL Normal 0.76-1.46 FT4&TSH Panel 12/20/2019 [facility] n[facility] [address] [place] [address] (315)- - Thyroid Stimulating Hormone 1.860 uIU/ML Normal 0.358- 3.740 Free T4 1.09 ng/dL Normal 0.76-1.46 FT4&TSH Panel 11/16/2019 [facility] n[facility] [address] [place] [address] (315)- - Thyroid Stimulating Hormone 1.980 uIU/ML Normal 0.358- 3.740 Free T4 1.20 ng/dL Normal 0.76-1.46 Laboratory test finding 10/25/2019 In House Hemoglobin A1c 6.9 Glucose 185 Laboratory test finding 10/21/2019 [facility] [address] [place] [address] (315)- - Thyroid Stimulating Hormone 3.750 uIU/ML High 0.358- 3.740 3 Free T4 0.91 ng/dL Normal 0.76-1.46 4 1 note:<nlbl:demographic_chang ed> 2 note:<nlbl:demographic_chang ed> 3 note:<nlbl:demographic_chang ed> 4 note:<nlbl:demographic_chang ed> Procedures Description No Information Available Medical Devices Description No Information Available Encounters Type Date Location Provider Dx Diagnosis Office Visit 03/22/2020 10:30a DR. Rajwinder Emerson, ASSISTANT REAL ESTATE MANAGER O9 9.282 Endo, nutritional and metab diseases comp preg, second tri E06.3 Autoimmune thyroiditis Z3A.25 25 weeks gestation of pregna nc Office Visit 02/22/2020 8:30a DR. Rajwinder Emerson, TAWANNA O9 9.282 Endo, nutritional and metab diseases comp preg, second tri E06.3 Autoimmune thyroiditis Z3A.21 21 weeks gestation of pregna ncy Office Visit 2020 8:30a DR. Rajwinder Emerson, TAWANNA O9 9.282 Endo, nutritional and metab diseases comp preg, second tri E06.3 Autoimmune thyroiditis Z3A.17 17 weeks gestation of pregna ncy Office Visit 12/24/2019 9:00a DR. Rajwinder Emerson, ASSISTANT REAL ESTATE MANAGER Z3 A.12 12 weeks gestation of O99.281 Endo, nutritional and metab diseases comp preg, first tri E06.3 Autoimmune thyroiditis Office Visit 11/24/2019 8:30a DR. Rajwinder Emerson, TAWANNA O9 9.281 Endo, nutritional and metab diseases comp preg, first tri E06.3 Autoimmune thyroiditis Z3A.08 8 weeks gestation of pregnan cy Office Visit 10/25/2019 8:30a DR. Rajwinder Emerson, TAWANNA O9 9.281 Endo, nutritional and metab diseases comp preg, first tri E06.3 Autoimmune thyroiditis Assessments Date Code Description Provider 03/22/2020 O99.282 Endocrine, nutrition al and metabolic diseases complicating , second trimester Rosangela Emerson NP 03/22/2020 E06.3 Autoimmune thyroiditis Rosangela Emerson, TAWANNA 03/22/2020 Z3A.25 25 weeks gestation of Rosangela Emerson NP 02/22/2020 O99.282 Endocrine, nutrition al and metabolic diseases complicating , second trimester Rosangela Emerson NP 02/22/2020 E06.3 Autoimmune thyroiditis Rosangela Emerson, TAWANNA 02/22/2020 Z3A.21 21 weeks gestation of Rosangela Emerson NP 2020 O99.282 Endocrine, nutrition al and metabolic diseases complicating , second trimester Rosangela Emerson NP 2020 E06.3 Autoimmune thyroiditis Rosangela Emerson NP 2020 Z3A.17 17 weeks gestation of Rosangela Emerson NP 12/24/2019 Z3A.12 12 weeks gestation of Rosangela Emerson NP 12/24/2019 O99.281 Endocrine, nutrition al and metabolic diseases complicating , first trimester Rosangela Emerson NP 12/24/2019 E06.3 Autoimmune thyroiditis Rosangela Emerson NP 11/24/2019 O99.281 Endocrine, nutrition al and metabolic diseases complicating , first trimester Rosangela Emerson NP 11/24/2019 E06.3 Autoimmune thyroiditis Rosangela Emerson NP 11/24/2019 Z3A.08 8 weeks gestation of Kimmy madhu Emerson NP 10/25/2019 O99.281 Endocrine, nutrition al and metabolic diseases complicating , first trimester Rosangela Emerson NP 10/25/2019 E06.3 Autoimmune thyroiditis Rosangela Emerson NP Plan of Treatment Future Appointment(s):* 04/20/2020 11:45 am - Rosangela Emerson NP at DR. Rajwinder Temple 03/22/2020 - Rosangela Emerson NP* O99.282 Endocrine, nutritional and metabolic diseases complicating , second trimester* Comments:* KATHERINE 2017 guidelines suggest the following trimester-specific reference ranges for TSH (mU/L): First trimester 0.1 to 2.5, (week 1-12)Second trimester 0.2 to 3.0, (week 13- 27)Third trimester 0.3 to 3.0. ( week 28-40)TSH should be measured every 4 weeks in the first and second trimester and once in the third trimester. * E06.3 Autoimmune thyroiditis* Comments:* Had Gastric bypass surgery 09/29/17Was on Levothyroxine 150 mcg po qd 10/28/18- TSH= 0.482, FT4= 1.01- stable: Had lost 36 lbs106/28/18- TSH= 0.273, FT4= 1.23- 10/21/2019- TSH= 3.750, FT4= 0.91:Dose increased to Levothyroxine 175mcg po qd. Labs done 11/16/2019- TSH= 1.98, FT4= 1.2- stable12/20/2019- TSH= 1.09, FT4= 1.860- stableLabs done 01/21/2020- TSH= 0.938, FT4= 1.26Labs done 02/17/2020- TSH= 0.599, FT4= 1.29Currently on Levothyroxine 175mcg po qdLabs done 03/20/2020- TSH= 0.610, FT 4= 1.13Will continue sameCall with any problemsRTO 1 month * Follow up:* RTO 4 weeks ROSALINA * Z3A.25 25 weeks gestation of * Comments:* is progressing without medical difficulty. Functional Status Description No Information Available Mental Status Description No Information Available Referrals Description No Information Available
--- OUTSIDE RECORDS SUMMARY | 2020-06-28 21:11 | CCD ---
Author Author [facility] Organization [facility] Address Unknown Phone Unavailable Care Team Providers Care Cloth Calender Name Role Phone Stephany Britt MD Unavailable Unavailable Stephany Britt MD Unavailable Unavailable Stephany Britt MD Unavailable Unavailable Stephany Britt MD Unavailable Unavailable Stephany Britt MD Unavailable Unavailable Stephany Britt MD Unavailable Unavailable Stephany Britt MD Unavailable Unavailable Stephany Britt MD Unavailable Unavailable Stephany Britt MD Unavailable Unavailable Stephany Britt MD Unavailable Unavailable Stephany Britt MD Unavailable Unavailable COOK, B EDITH BACKEND TESTER Unavailable Unavailable COOK, B EDITH BACKEND TESTER Unavailable Unavailable COOK, B EDITH BACKEND TESTER Unavailable Unavailable COOK, B EDITH BACKEND TESTER Unavailable Unavailable COOK, B EDITH BACKEND TESTER Unavailable Unavailable COOK, B EDITH BACKEND TESTER Unavailable Unavailable COOK, B EDITH BACKEND TESTER Unavailable Unavailable COOK, B EDITH BACKEND TESTER Unavailable Unavailable COOK, B EDITH BACKEND TESTER Unavailable Unavailable COOK, B EDITH BACKEND TESTER Unavailable Unavailable COOK, B EDITH BACKEND TESTER Unavailable Unavailable COOK, B EDITH BACKEND TESTER Unavailable Unavailable COOK, B EDITH BACKEND TESTER Unavailable Unavailable COOK, B EDITH BACKEND TESTER Unavailable Unavailable COOK, B EDITH BACKEND TESTER Unavailable Unavailable COOK, B EDITH BACKEND TESTER Unavailable Unavailable COOK, B EDITH BACKEND TESTER Unavailable Unavailable COOK, B EDITH BACKEND TESTER Unavailable Unavailable COOK, B EDITH BACKEND TESTER Unavailable Unavailable COOK, B EDITH BACKEND TESTER Unavailable Unavailable COOK, B EDITH BACKEND TESTER Unavailable Unavailable COOK, B EDITH BACKEND TESTER Unavailable Unavailable COOK, B EDITH BACKEND TESTER Unavailable Unavailable COOK, B EDITH BACKEND TESTER Unavailable Unavailable COOK, B EDITH BACKEND TESTER Unavailable Unavailable COOK, B EDITH BACKEND TESTER Unavailable Unavailable COOK, B EDITH BACKEND TESTER Unavailable Unavailable COOK, B EDITH BACKEND TESTER Unavailable Unavailable COOK, B EDITH BACKEND TESTER Unavailable Unavailable COOK, B EDITH BACKEND TESTER Unavailable Unavailable COOK, B EDITH BACKEND TESTER Unavailable Unavailable COOK, B EDITH BACKEND TESTER Unavailable Unavailable COOK, B EDITH BACKEND TESTER Unavailable Unavailable COOK, B EDITH BACKEND TESTER Unavailable Unavailable COOK, B EDITH BACKEND TESTER Unavailable Unavailable COOK, B EDITH BACKEND TESTER Unavailable Unavailable COOK, B EDITH BACKEND TESTER Unavailable Unavailable COOK, B EDITH BACKEND TESTER Unavailable Unavailable COOK, B EDITH BACKEND TESTER Unavailable Unavailable COOK, B EDITH BACKEND TESTER Unavailable Unavailable COOK, B EDITH BACKEND TESTER Unavailable Unavailable COOK, B EDITH BACKEND TESTER Unavailable Unavailable COOK, B EDITH BACKEND TESTER Unavailable Unavailable COOK, B EDITH BACKEND TESTER Unavailable Unavailable COOK, B EDITH BACKEND TESTER Unavailable Unavailable COOK, B EDITH BACKEND TESTER Unavailable Unavailable COOK, B EDITH BACKEND TESTER Unavailable Unavailable COOK, B EDITH BACKEND TESTER Unavailable Unavailable COOK, B EDITH BACKEND TESTER Unavailable Unavailable COOK, B EDITH BACKEND TESTER Unavailable Unavailable COOK, B EDITH BACKEND TESTER Unavailable Unavailable COOK, B EDITH BACKEND TESTER Unavailable Unavailable COOK, B EDITH BACKEND TESTER Unavailable Unavailable COOK, B EDITH BACKEND TESTER Unavailable Unavailable COOK, B EDITH BACKEND TESTER Unavailable Unavailable COOK, B EDITH BACKEND TESTER Unavailable Unavailable COOK, B EDITH BACKEND TESTER Unavailable Unavailable COOK, B EDITH BACKEND TESTER Unavailable Unavailable COOK, B EDITH BACKEND TESTER Unavailable Unavailable COOK, B EDITH BACKEND TESTER Unavailable Unavailable COOK, B EDITH BACKEND TESTER Unavailable Unavailable COOK, B EDITH BACKEND TESTER Unavailable Unavailable COOK, B EDITH BACKEND TESTER Unavailable Unavailable COOK, B EDITH BACKEND TESTER Unavailable Unavailable Re-disclosure Warning The records that you are about to access may contain information from federally-assisted alcohol or drug abuse programs. If such information is present, then the following federally mandated warning applies: This information has been disclosed to you from records protected by federal confidentiality rules (42 CFR part 2). The federal rules prohibit you from making any further disclosure of this information unless further disclosure is expressly permitted by the written consent of the person to whom it pertains or as otherwise permitted by 42 CFR part 2. A general authorization for the release of medical or other information is NOT sufficient for this purpose. The Federal rules restrict any use of the information to criminally investigate or prosecute any alcohol or drug abuse patient.The records that you are about to access may contain highly sensitive health information, the redisclosure of which is protected by Article 27-F of the [facility] Public Health law. If you continue you may have access to information: Regarding HIV / AIDS; Provided by facilities licensed or operated by the [facility] Office of Mental Health; or Provided by the [facility] Office for People With Developmental Disabilities. If such information is present, then the following [facility] mandated warning applies: This information has been disclosed to you from confidential records which are protected by state law. State law prohibits you from making any further disclosure of this information without the specific written consent of the person to whom it pertains, or as otherwise permitted by law. Any unauthorized further disclosure in violation of state law may result in a fine or correction sentence or both. A general authorization for the release of medical or other information is NOT sufficient authorization for further disc losure. Allergies and Adverse Reactions Type Description Substance Reaction Status Data Source(s ) Latex Latex Latex Unknown Active eCW1 ([facility]) Latex Latex Latex Unknown Active eCW1 ([facility]) Drug allergy No Known Drug Allergies No Known Drug Allergies [facility] Family History Family Member Name Family Member Gender Family Member Status Date o f Status Description Data Source(s) Unknown Male Problem MEDENT ([facility] ) Unknown Unknown Problem MEDENT ([facility], ) Encounters Encounter Providers Location Date Indications Data Source(s ) ( ESTOB) [facility] [address] [place] [address] 06/08/2020 12:00:00 AM EST eCW1 (Replaced by [facility]) ( ESTOB) [facility] [address] [place] [address] 05/24/2020 12:00:00 AM EST eCW1 (Replaced by [facility]) ( ESTOB) [facility] [address] [place] [address] 05/08/2020 12:00:00 AM EST eCW1 ([facility]) (WC ESTOB) [facility] [address] [place] [address] 04/20/2020 12:00:00 AM EST eCW1 ([facility]) [place] [address] [facility] [address] 04/07/2020 12:00:00 AM EST eCW1 [facility]) Outpatient Attender: EDITH FINNEY NP Physical Therapy 03/22/2020 0 9:30:00 AM EST MEDENT ([facility]) (WC ESTOB) [facility] [address] [place] [address] 03/22/2020 12:00:00 AM EST eCW1 ([facility]) [place] [address] [facility] [address] 03/15/2020 12:00:00 AM EDT eCW1 ([facility]) Outpatient Attender: EDITH FINNEY NP Physical Therapy 02/22/2020 0 8:30:00 AM EDT MEDENT ([facility]) (WC ESTOB) [facility] [address] [place] [address] 02/22/2020 12:00:00 AM EDT eCW1 ([facility]) Outpatient Attender: EDITH FINNEY NP Physical Therapy 2020 0 8:30:00 AM EDT MEDENT ([facility]) Outpatient Attender: EDITH FINNEY NP Physical Therapy 12/24/2019 0 9:00:00 AM EDT MEDENT ([facility]) (WC ESTOB) [facility] [address] [place] [address] 11/29/2019 12:00:00 AM EDT eCW1 ([facility]) [place] [address] [facility] [address] 11/29/2019 12:00:00 AM EDT eCW1 ([facility]) Outpatient Attender: EDITH FINNEY NP Physical Therapy 11/24/2019 0 8:30:00 AM EDT MEDENT ([facility]) [place] [address] [facility] [address] 11/08/2019 12:00:00 AM EDT eCW1 ([facility]) Outpatient Attender: EDITH FINNEY BACKEND TESTER Physical Therapy 10/25/2019 0 8:30:00 AM EDT MEDENT ([facility]) Unknown [address] [facility], [facility] [address] 10/22/2019 12:00:00 AM EDT eCW1 ([facility]) [facility] [address] [place] [address] 08/01/2019 12:00:00 AM EDT eCW1 ([facility]) [facility] [address] [place] [address] 07/20/2019 12:00:00 AM EST eCW1 ([facility]) [facility] [address] [place] [address] 07/04/2019 12:00:00 AM EST eCW1 ([facility]) [facility] [address] [place] [address] 06/04/2019 12:00:00 AM EST eCW1 ([facility]) Emergency Attender: Chris Britt MD 05/30/19 03:20:00 PM EST - 05/30/2019 07:50:00 PM EST VAGINAL BLEEDING [facility] VAGINAL BLEEDING Patient discharged. Immunizations Vaccine Date Status Description Data Source(s) New in 2011. IIV4 04/20/2020 09:03:00 AM EST completed eCW1 ([facility]) New in 2011. IIV4 04/20/2020 09:03:00 AM EST completed eCW1 ([facility]) New in 2011. IIV4 04/20/2020 09:03:00 AM EST completed eCW1 ([facility]) New in 2011. IIV4 04/20/2020 09:03:00 AM EST completed eCW1 ([facility]) Tdap 04/20/2020 09:02:00 AM EST completed e CW1 ([facility]) Tdap 04/20/2020 09:02:00 AM EST completed e CW1 ([facility]) Tdap 04/20/2020 09:02:00 AM EST completed e CW1 ([facility]) Tdap 04/20/2020 09:02:00 AM EST completed e CW1 ([facility]) Medications Medication Brand Name Start Date Product Form Dose Route Admi nistrative Instructions Pharmacy Instructions Status Indications Reaction Description Data Source(s) 175 mcg 05/08/2020 12:00:00 AM EST tablet 30 TAKE ONE TABLET BY MOUTH EVERY DAY MAXIMUM DAILY DOSE = 1 TAKE ONE TABLET BY MOUTH EVERY DAY MAXIM UM DAILY DOSE = 1 SOLD: 06/12/2020 [facility] 175 mcg 05/08/2020 12:00:00 AM EST tablet 30 TAKE ONE TABLET BY MOUTH EVERY DAY MAXIMUM DAILY DOSE = 1 TAKE ONE TABLET BY MOUTH EVERY DAY MAXIM UM DAILY DOSE = 1 SOLD: 05/11/2020 [facility] 175 mcg 03/22/2020 12:00:00 AM EST tablet 30 TAKE ONE TABLET BY MOUTH EVERY DAY TAKE ONE TABLET BY MOUTH EVERY DAY SOLD: 03/22/2020 [facility] Test Strips - UNK 03/22/2020 12:00:00 AM EST acti ve Test Strips - eCW1 ([facility]) Glucose Monitor - UNK 03/22/2020 12:00:00 AM EST suspended Glucose Monitor - eCW1 ([facility]) Glucose Monitor - UNK 03/22/2020 12:00:00 AM EST active Glucose Monitor - eCW1 ([facility]) Alcohol Pads 70 % Alcohol Pads 70 % 03/22/2020 12:00:00 AM EST active Alcohol Pads 70 % eCW1 ([facility]) Glucose Monitor - UNK 03/22/2020 12:00:00 AM EST active Glucose Monitor - eCW1 ([facility]) Lancets - Lancets - 03/22/2020 12:00:00 AM EST act haylie Lancets - eCW1 ([facility]) Glucose Monitor - UNK 03/22/2020 12:00:00 AM EST active Glucose Monitor - eCW1 ([facility]) Lancets - Lancets - 03/22/2020 12:00:00 AM EST act haylie Lancets - eCW1 ([facility]) Test Strips - UNK 03/22/2020 12:00:00 AM EST acti ve Test Strips - eCW1 ([facility]) Alcohol Pads 70 % Alcohol Pads 70 % 03/22/2020 12:00:00 AM EST active Alcohol Pads 70 % eCW1 ([facility]) Test Strips - UNK 03/22/2020 12:00:00 AM EST suspended Test Strips - eCW1 ([facility]) Test Strips - UNK 03/22/2020 12:00:00 AM EST acti ve Test Strips - eCW1 ([facility]) Lancets - Lancets - 03/22/2020 12:00:00 AM EST act haylie Lancets - eCW1 ([facility]) Lancets - Lancets - 03/22/2020 12:00:00 AM EST suspended Lancets - eCW1 ([facility]) Lancets - Lancets - 03/22/2020 12:00:00 AM EST act haylie Lancets - eCW1 ([facility]) Alcohol Pads 70 % Alcohol Pads 70 % 03/22/2020 12:00:00 AM EST suspended Alcohol Pads 70 % eCW1 ([facility]) Glucose Monitor - UNK 03/22/2020 12:00:00 AM EST suspended Glucose Monitor - eCW1 ([facility]) Glucose Monitor - UNK 03/22/2020 12:00:00 AM EST active Glucose Monitor - eCW1 ([facility]) Test Strips - UNK 03/22/2020 12:00:00 AM EST suspended Test Strips - eCW1 ([facility]) Alcohol Pads 70 % Alcohol Pads 70 % 03/22/2020 12:00:00 AM EST active Alcohol Pads 70 % eCW1 ([facility]) Lancets - Lancets - 03/22/2020 12:00:00 AM EST suspended Lancets - eCW1 ([facility]) Test Strips - UNK 03/22/2020 12:00:00 AM EST suspended Test Strips - eCW1 ([facility]) Alcohol Pads 70 % Alcohol Pads 70 % 03/22/2020 12:00:00 AM EST suspended Alcohol Pads 70 % eCW1 ([facility]) BLOOD-GLUCOSE METER 03/22/2020 12:00:00 AM EST misc 1 TEST DIRECTED FOUR TIMES A DAY TEST DIRECTED FOUR TIMES A DAY SOLD: 03/22/2020 [facility] Alcohol Pads 70 % Alcohol Pads 70 % 03/22/2020 12:00:00 AM EST suspended Alcohol Pads 70 % eCW1 ([facility]) BLOOD SUGAR DIAGNOSTIC 03/22/2020 12:00:00 AM EST strip 100 TEST FOUR TIMES A DAY TEST FOUR TIMES A DAY SOLD: 03/22/2020 [facility] Alcohol Pads 70 % Alcohol Pads 70 % 03/22/2020 12:00:00 AM EST active Alcohol Pads 70 % eCW1 ([facility]) BLOOD SUGAR DIAGNOSTIC 03/22/2020 12:00:00 AM EST strip 100 TEST FOUR TIMES A DAY TEST FOUR TIMES A DAY SOLD: 04/15/2020 [facility] Test Strips - UNK 03/22/2020 12:00:00 AM EST acti ve Test Strips - eCW1 ([facility]) Lancets - Lancets - 03/22/2020 12:00:00 AM EST suspended Lancets - eCW1 ([facility]) Glucose Monitor - UNK 03/22/2020 12:00:00 AM EST suspended Glucose Monitor - eCW1 ([facility]) 175 mcg 02/23/2020 12:00:00 AM EDT tablet 30 TAKE ONE TABLET BY MOUTH EVERY DAY TAKE ONE TABLET BY MOUTH EVERY DAY SOLD: 04/15/2020 [facility] 175 mcg 02/23/2020 12:00:00 AM EDT tablet 30 TAKE ONE TABLET BY MOUTH EVERY DAY TAKE ONE TABLET BY MOUTH EVERY DAY SOLD: 02/28/2020 [facility] 175 mcg 12/24/2019 12:00:00 AM EDT tablet 30 TAKE ONE TABLET BY MOUTH EVERY DAY TAKE ONE TABLET BY MOUTH EVERY DAY SOLD: 12/25/2019 [facility] 175 mcg 12/24/2019 12:00:00 AM EDT tablet 30 TAKE ONE TABLET BY MOUTH EVERY DAY TAKE ONE TABLET BY MOUTH EVERY DAY SOLD: 01/30/2020 [facility] Progesterone 100 MG Oral Capsule PROGESTERONE, MICRONIZED 12:00:00 AM EDT capsule 30 INSERT ONE CAPSULE PER VAGIN A AT BEDTIME DIRECTED INSERT ONE CAPSULE PER VAGINA AT BEDTIME DIRECTED SOLD: 10/27/2019 [facility] Progesterone 100 MG Oral Capsule PROGESTERONE, MICRONIZED 12:00:00 AM EDT capsule 30 INSERT ONE CAPSULE PER VAGIN A AT BEDTIME DIRECTED INSERT ONE CAPSULE PER VAGINA AT BEDTIME DIRECTED SOLD: 11/27/2019 [facility] Progesterone 100 MG Oral Capsule [Prometrium] Prometri um 100 MG Prometrium 100 MG 10/25/2019 12:00:00 AM EDT active Prometrium 100 MG eCW1 ([facility]) Levothyroxine Sodium 0.175 MG Oral Tablet Levothyroxine Sodi um 10/25/2019 12:00:00 AM EDT ORAL active M EDENT ([facility]) Progesterone 100 MG Oral Capsule [Prometrium] Prometri um 100 MG Prometrium 100 MG 10/25/2019 12:00:00 AM EDT active Prometrium 100 MG eCW1 ([facility]) Progesterone 100 MG Oral Capsule [Prometrium] Prometri um 100 MG Prometrium 100 MG 10/25/2019 12:00:00 AM EDT suspended Prometrium 100 MG eCW1 ([facility]) 175 mcg 10/25/2019 12:00:00 AM EDT tablet 30 TAKE ONE TABLET BY MOUTH EVERY DAY TAKE ONE TABLET BY MOUTH EVERY DAY SOLD: 11/23/2019 [facility] Progesterone 100 MG Oral Capsule [Prometrium] Prometri um 100 MG Prometrium 100 MG 10/25/2019 12:00:00 AM EDT active Prometrium 100 MG eCW1 ([facility]) 175 mcg 10/25/2019 12:00:00 AM EDT tablet 30 TAKE ONE TABLET BY MOUTH EVERY DAY TAKE ONE TABLET BY MOUTH EVERY DAY SOLD: 10/25/2019 [facility] 150 mcg 04/28/2019 12:00:00 AM EST tablet 90 TAKE ONE TABLET BY MOUTH EVERY DAY TAKE ONE TABLET BY MOUTH EVERY DAY SOLD: 05/07/2019 [facility] 150 mcg 04/28/2019 12:00:00 AM EST tablet 90 TAKE ONE TABLET BY MOUTH EVERY DAY TAKE ONE TABLET BY MOUTH EVERY DAY SOLD: 08/06/2019 [facility] 1,250 mcg (50,000 unit) 03/31/2019 12:00:00 AM EST capsule 12 TAKE 1 CAPSULE BY MOUTH ONCE WEEKLY TAKE 1 CAPSULE BY MOUTH ONCE WEEKLY SOLD: 06/22/2019 [facility] Insurance Providers Payer name Policy type / Coverage type Policy ID Covered constitution party ID Covered constitution party's relationship to ordonez Policy Ordonez Plan Information [facility] [id number] SP [id number] BCBS EMPIRE RAYA DIV [id number] [employer] [facility] O [id number] S [id number] BCBS EMPIRE RAYA DIV [id number] [employer] [facility] [id number] [id number] BCBS EMPIRE RAYA DIV [id number] [id number] [employer] [facility] [id number] [facility] Health Maintenance Organization (O) [id number] Family Dependent [id number] MVP Exchange Hmo Commercial [id number] Self [id number] [facility] Health Maintenance Organization (O) [id number] [facility] Health Maintenance Organization (O) [id number] Self [id number] [facility] [id number] [facility] Maintenance Organization (O) [id number]ependent [id number] [facility] Health [facility] Organization (O) [id number] Self [id number] EXCELLUS BCBS [id number] LfP [id number] [facility] Health Maintenance Organization (O) [id number] Family Dependent [id number] EMPIRE BLUE CROSS BLUE SHIELD -O/P [id number] 01 [id number] EMPIRE BLUE CROSS BLUE SHIELD -O/P [id number] 01 [id number] [facility] Health Maintenance Organization (O) [id number] Family Dependent [id number] [facility] Individual Policy 0 Sponsored dependent Sadi Harrison 0 EXCELLUS BCBS PI PI [facility] Health Maintenance Organization (O) [id number] Family Dependent [id number] H - [facility] Health Other 0 Sponsored dependent Sadi Harrison 0 [facility] Health Maintenance Organization (HMO) [id number] Self [id number] BCBS EMPIRMorgan DOS SANTOS DIV [id number] [facility] Maintenance Organization (HMO) [id number] Family Dependent [id number] [facility] Maintenance Organization (HMO) [id number] Family Dependent [id number] [facility] Health Maintenance Organization (HMO) [id number] Self [id number] [employer] [id number] [id number] [facility] Health Maintenance Organization (HMO) [id number] Family Dependent [id number] BCBS EMPIRMorgan RAYA DIV [id number] [facility] Health Maintenance Organization (HMO) [id number] Family Dependent [id number] [facility] Health Maintenance Organization (HMO) [id number] Self [id number] [facility] Health Maintenance Organization (HMO) [id number] Family Dependent [id number] [facility] Health Maintenance Organization (HMO) Family Dependent MVP Exchange Hmo Commercial Self Medicaid [place] Medigap Part B Self MVP Medicaid Health Maintenance Organization (HMO) Self MVP [id number] SP [id number] MVP Exchange Hmo Commercial Self [employer] O [id number] S [id number] MEDICAID [id number] SP [id number] Problems, Conditions, and Diagnoses Code Display Name Description Problem Type Effective Dates Data Source(s) O34.211 Maternal care for low transverse scar fr om previous delivery Maternal care due to low transverse uterine scar from previous delivery Problem 05/24/2020 12:00:00 AM EST eCW1 ([facility]) O99.843 [id number] Previous gastric byp ass affecting in third trimester, antepartum Problem 05/24/2020 12:00:00 AM EST eCW1 ([facility]) O99.[id number] atus complicating , second trimester Problem 03/22/2020 12:00:00 AM EST eCW1 ([facility]) Z34.80 care Supervision of other normal P zachm 11/29/2019 12:00:00 AM EDT eCW1 ([facility]) Surgeries/Procedures Procedure Description Date Indications Data Source(s) Immunization: Boostrix 0.5mL IM (TDAP) 04/20/2020 12:0 0:00 AM EST eCW1 ([facility]) INFLUENZA VIRUS VACC SPLIT PRSRV FREE 3 YRS/> IM 04/20 12:00:00 AM EST eCW1 ([facility]) US UTERUS 14 WK TRANSABDL GESTAT 2019 12:00:00 AM EST eCW1 ([facility]) Transvaginal obstetric ultrasonography (procedure) 05/30/2019 05:24:00 PM [facility] Ultrasonography in first trimester (procedure) 020 05:23:00 PM [facility] Results ID Date Data Source GROUP B STREP CULTURE 06/08/2020 12:00:00 AM EST eCW1 ([facility]) Name Value Range Interpretation Code Description Data Yuki rce(s) Supporting Document(s) GROUP B STREP CULTURE eCW1 ([facility]) ID Date Data Source [id number] 04/12/2020 01:32:00 PM EST MEDENT ([facility]) Name Value Range Interpretation Code Description Data Yuki rce(s) Supporting Document(s) Free T4 1.29 ng/dL 0.76-1.46 MEDENT ([facility]) Thyroid Stimulating Hormone 0.380 uIU/ML 0.358-3.740 MEDENT ([facility]) ID Date Data Source CBC - Complete Blood Count 03/22/2020 12:00:00 AM EST eCW1 ( [facility]) Name Value Range Interpretation Code Description Data Yuki rce(s) Supporting Document(s) 7.1 4.0-10.0 WHITE BLOOD COUNT eCW1 ([facility]) 13.0 12.0-15.5 HEMOGLOBIN eCW1 ([facility]) 4.13 4.00-5.40 RED BLOOD COUNT eCW1 ([facility]) 95.4 80.0-96.0 MEAN CORPUSCULAR VOLUME e CW1 ([facility]) 39.4 36.0-47.0 HEMATOCRIT eCW1 ([facility]) 33.0 32.0-36.5 MEAN CORPUSCULAR HGB CONC eCW1 ([facility]) 31.5 27.0-33.0 MEAN CORPUSCULAR HEMOGLOB IN eCW1 ([facility]) 275 150-450 PLATELET COUNT, AUTOMATED eCW1 ([facility]) 12.4 11.5-14.5 RED CELL DISTRIBUTION WID TH eCW1 ([facility]) ID Date Data Source [id number] 03/20/2020 09:47:00 AM EST MEDENT ([facility]) Name Value Range Interpretation Code Description Data Yuki rce(s) Supporting Document(s) Thyroid Stimulating Hormone 0.610 uIU/ML 0.358-3.740 MEDENT ([facility]) Free T4 1.13 ng/dL 0.76-1.46 MEDENT ([facility]) ID Date Data Source WW OBS FOLLOW UP OR REPEAT 03/08/2020 09:21:32 AM EDT eCW1 ([facility]) Name Value Range Interpretation Code Description Data Yuki rce(s) Supporting Document(s) WW OBS FOLLOW UP OR REPEAT e CW1 ([facility]) ID Date Data Source [id number] 02/17/2020 11:35:00 AM EDT MEDENT ([facility]) Name Value Range Interpretation Code Description Data Yuki rce(s) Supporting Document(s) Thyrotropin [Units/volume] in Serum or Plasma by Detec tion limit <= 0.05 mIU/L 0.599 uIU/ML 0.358-3.740 MEDENT ([facility]) <content>note:<nlbl:demographic_changed> </content>
<content></content> Thyroxine (T4) free [Mass/volume] in Serum or Plasma 1.29 ng/dL 0.76- 1.46 MEDENT ([facility]) <content>note:<nlbl:demographic_changed> </content>
<content></content> ID Date Data Source [id number] 01/21/2020 11:35:00 AM EDT MEDENT ([facility]) Name Value Range Interpretation Code Description Data Yuki rce(s) Supporting Document(s) Thyroid Stimulating Hormone 0.938 uIU/ML 0.358-3.740 MEDENT ([facility]) Free T4 1.26 ng/dL 0.76-1.46 [facility] ([facility]) ID Date Data Source [id number] 12/20/2019 01:47:00 PM EDT MED[facility] ([facility]) Name Value Range Interpretation Code Description Data Yuki rce(s) Supporting Document(s) Free T4 1.09 ng/dL 0.76-1.46 MED[facility] ([facility]) Thyroid Stimulating Hormone 1.860 uIU/ML 0.358-3.740 [facility] ([facility]) ID Date Data Source ABS MAN TUBE 12/01/2019 10:15:02 AM EDT eCW1 ([facility]) Name Value Range Interpretation Code Description Data Yuki rce(s) Supporting Document(s) NEGATIVE eCW1 ([facility]) ID Date Data Source ABO/RH TYPE 12/01/2019 10:14:58 AM EDT eCW1 ([facility]) Name Value Range Interpretation Code Description Data Yuki rce(s) Supporting Document(s) B POSITIVE eCW1 ([facility]) ID Date Data Source CHLAMYDIA & GC DNA AMPLIFICAT 12/01/2019 10:14:54 AM EDT eCW 1 ([facility]) Name Value Range Interpretation Code Description Data Yuki rce(s) Supporting Document(s) Chlamydia trachomatis rRNA [Presence] in Unspecified specimen by Probe and target amplification method NEGATIVE eCW1 ([facility]) ID Date Data Source URINE CULTURE 12/01/2019 10:14:51 AM EDT eCW1 ([facility]) Name Value Range Interpretation Code Description Data Yuki rce(s) Supporting Document(s) eCW1 ([facility]) ID Date Data Source FOLATE 12/01/2019 02:32:40 AM EDT eCW1 ([facility]) Name Value Range Interpretation Code Description Data Yuki rce(s) Supporting Document(s) 19.5 eCW1 ([facility]) ID Date Data Source VITAMIN D 25-HYDROXY 12/01/2019 02:32:29 AM EDT eCW1 ([facility]) Name Value Range Interpretation Code Description Data Yuki rce(s) Supporting Document(s) 34.6 eCW1 ([facility]) ID Date Data Source FREE T4 & TSH PANEL 12/01/2019 02:32:26 AM EDT eCW1 ([facility]) Name Value Range Interpretation Code Description Data Yuki rce(s) Supporting Document(s) 1.280 THYROID STIMULATING HORMONE eC W1 ([facility]) 1.23 FREE T4 eCW1 ([facility]) ID Date Data Source VITAMIN B12 LEVEL 12/01/2019 02:32:18 AM EDT eCW1 ([facility]) Name Value Range Interpretation Code Description Data Yuki rce(s) Supporting Document(s) 516 eCW1 ([facility]) ID Date Data Source HBSAG 12/01/2019 02:32:13 AM EDT eCW1 ([facility]) Name Value Range Interpretation Code Description Data Yuki rce(s) Supporting Document(s) NEGATIVE eCW1 ([facility]) ID Date Data Source HEPATITIS C ANTIBODY INDEX 12/01/2019 02:31:21 AM EDT eCW1 ( [facility]) Name Value Range Interpretation Code Description Data Yuki rce(s) Supporting Document(s) 0.1 eCW1 ([facility]) ID Date Data Source RUBELLA IMMUNE STATUS IgG 12/01/2019 02:31:18 AM EDT [facility] Name Value Range Interpretation Code Description Data Yuki rce(s) Supporting Document(s) IMMUNE eCW1 ([facility]) ID Date Data Source SYPHILIS ANTIBODY (RPR SCREEN) 12/01/2019 02:31:10 AM EDT eC W1 ([facility]) Name Value Range Interpretation Code Description Data Yuki rce(s) Supporting Document(s) NONREACTIVE eCW1 ([facility]) ID Date Data Source [id number] 12/01/2019 02:31:06 AM EDT eCW1 ([facility]) Name Value Range Interpretation Code Description Data Yuki rce(s) Supporting Document(s) eCW1 ([facility]) ID Date Data Source [id number] 11/16/2019 03:51:00 PM EDT MEDENT ([facility]) Name Value Range Interpretation Code Description Data Yuki rce(s) Supporting Document(s) Thyroid Stimulating Hormone 1.980 uIU/ML 0.358-3.740 MED[facility] ([facility]) Free T4 1.20 ng/dL 0.76-1.46 [facility] ([facility]) ID Date Data Source [id number] 10/25/2019 09:51:00 AM EDT [facility] ([facility]) Name Value Range Interpretation Code Description Data Yuki rce(s) Supporting Document(s) Hemoglobin A1c/Hemoglobin.total in Blood 6.9 [facility] ([facility]) Glucose [Mass/volume] in Serum or Plasma 185 [facility] ([facility]) ID Date Data Source [id number] 10/21/2019 01:36:00 PM EDT [facility] ([facility]) Name Value Range Interpretation Code Description Data Yuki rce(s) Supporting Document(s) Thyroxine (T4) free [Mass/volume] in Serum or Plasma 0.91 ng/dL 0.76- 1.46 [facility] ([facility]) <content>note:<nlbl:demographic_changed> </content>
<content></content> Thyrotropin [Units/volume] in Serum or Plasma by Detec tion limit <= 0.05 mIU/L 3.750 uIU/ML 0.358-3.740 [facility] ([facility]) <content>note:<nlbl:demographic_changed> </content>
<content></content> ID Date Data Source [id number] 07/30/2019 06:05:00 PM EDT [facility] Name Value Range Interpretation Code Description Data Yuki rce(s) Supporting Document(s) Specimen Type Comment: [facility] BLOOD Cells Counted 30 [facility] Cells Analyzed 20 [facility] Cells Karyotyped 2 [facility] GTG Band Resolution Achieved 500 L [facility] Cytogenetic Result Comment: [facility] 46,XX Interpretation Comment: [facility] NORMAL FEMALE KARYOTYPE Cytogenetic analysis of PHA stimulated cultures hasrevealed a FEMALE karyotype with an apparently normal GTGbanding pattern in all cells observed. This result does not exclude the possibility of subtlerearrangements below the resolution of cytogenetics orcongenital anomalies due to other etiologies. Director Review: Comment: Keron Rivera, PhD, [facility] PDF . [facility] ID Date Data Source CHROMOSOMAL KARYOTYPE BLOOD 07/20/2019 12:00:00 AM EST eCW1 ([facility]) Name Value Range Interpretation Code Description Data Yuki rce(s) Supporting Document(s) SEE SEPARATE REPORT CHROMKB1 eCW1 ([facility]) ID Date Data Source LUPUS TYPE ANTICOAGULANT SCREE 07/20/2019 12:00:00 AM EST eC W1 ([facility]) Name Value Range Interpretation Code Description Data Yuki rce(s) Supporting Document(s) 1.1 0-1.2 PTT LUPUS TYPE ANTICOAG S CREEN eCW1 ([facility]) ID Date Data Source ANTI-CARDIOLIPIN ANTIBODIES 07/20/2019 12:00:00 AM EST eCW1 ([facility]) Name Value Range Interpretation Code Description Data Yuki rce(s) Supporting Document(s) <9 0-14 CARDIOLIPIN IGG ANTIBODY eCW1 ([facility]) <9 0-12 CARDIOLIPIN IGM ANTIBODY eCW1 ([facility]) <9 0-11 CARDIOLIPIN IGA ANTIBODY eCW1 ([facility]) ID Date Data Source [id number] 07/20/2019 12:00:00 AM EST eCW1 ([facility]) Name Value Range Interpretation Code Description Data Yuki rce(s) Supporting Document(s) Hemoglobin A1c/Hemoglobin.total in Blood 4.9 HEMOGLOBIN A1c eCW1 ([facility]) ID Date Data Source [id number] 05/30/2019 07:14:00 PM EST [facility] [address] [place] [address] [phone] NAME SEX PT STATUS ACCOUNT NUMBER STEFANY HARRISON [facility] ER [id number] ORDERING PHYSICIAN LOCATION MEDICAL RECORD NO. Chris Britt MD ER [id number] ATTENDING PHYSICIAN DATE OF DATE OF EXAM/TIME Darcy Thapa MD 1985 05/[birth year]/191723 TYPE / EXAM US OB Transvaginal REASON FOR EXAM 8 WEEKS PREG/ VAGINAL BLEEDING [facility] [address] [place] [address] [phone] NAME SEX PT STATUS ACCOUNT NUMBER STEFANY HARRISON [facility] ER [id number] ORDERING PHYSICIAN LOCATION MEDICAL RECORD NO. Chris Britt MD ER [id number] ATTENDING PHYSICIAN DATE OF DATE OF EXAM/TIME Darcy Thapa MD 1985 05/30/191722 TYPE / EXAM US OB Ultrasound <14 weeks REASON FOR EXAM 8 weeks , vaginal bleeding Clinical History/Indication for Exam: 8 weeks , vaginal bleeding EXAM: US First Trimester, Transabdominal US , Transvaginal CLINICAL HISTORY: 8 week with vaginal bleeding. TECHNIQUE: Real-time transabdominal and transvaginal obstetrical ultrasound of the maternal pelvis and a first trimester with image documentation. Transvaginal imaging was used for better evaluation of the fetus and adnexa. COMPARISON: No relevant prior studies available. FINDINGS: Gestation: Intrauterine gestational sac is seen. Mean sac diameter is 12.2 mm. pole identified measuring 4.3 mm. Normal yolk sac. heart rate is not detected at this time perhaps due to early stage. Placenta/amniotic fluid: Cannot be adequately evaluated due to the early gestational age. Uterus/cervix: Anteverted uterus measures 10.7 x 4.3 x 6.2 cm. No uterine mass or fibroid is identified. Ovaries: The right ovary measures 3.5 x 2.0 x 1.5 cm. The left ovary measures 2.8 x 1.5 x 2.5 cm. There is no adnexal mass or cyst. Free fluid: No free fluid. IMPRESSION: Early first trimester intrauterine corresponding to 6 weeks 1 day by crown-rump length measurement anticipated delivery date of 01/22/2020. Heart rate is not detected at this time and a follow-up study within 4-7 days is recommended to reassess. No adnexal mass or cyst. No evidence of katja-gestational bleed. REPORT SIGNATURE ON FILE 05/30/2019 (16:13 [place] Time ) Signed by: Gaudencio Delcid M.D. Reported By Gaudencio Delcid MD on 05/30/191612 Signed By Gaudencio Delcid MD on 05/30/19 161 Date Time CC: Gaudencio Delcid MD; Darcy Thapa M.D. Techn: JUAN PABLO Diaz Dt/Tm: Trans by: DT Prt Dt/Tm: : Total DLP = 0.00 mGy-cm : Total Radiation Dose = 0.0000 mSv Lifetime Dose: 0 mSv Reported By Gaudencio Delcid MD on 05/30/19 191 Signed By Gaudencio Delcid MD on 05/31/19 171 Date Time CC: Gaudencio Delcid MD; Darcy Thapa M.D. Techn: CARAI Trans Dt/Tm: Trans by: DT Prt Dt/Tm: : Total DLP = 0.00 mGy-cm : Total Radiation Dose = 0.0000 mSv Lifetime Dose: 0 mSv Name Value Range Interpretation Code Description Data Yuki rce(s) Supporting Document(s) ID Date Data Source [id number] 05/30/2019 06:12:00 PM [facility] Reason for ordering culture: Abnormal fi ndings UA@05/30/19 1751: UA W/ MICRO added. RFLXG = UMIC CIF.Method of Collection:: Voided Reason for ordering culture: Abnormal fi ndings UA@05/30/19 1751: UA W/ MICRO added. RFLXG = UMIC CIF.Method of Collection:: Voided Name Value Range Interpretation Code Description Data [facility] rce(s) Supporting Document(s) Color of Urine [facility] Appearance of Urine CLEAR [facility] pH of Urine by Test strip 6.5 5-8 [facility] Specific gravity of Urine by Refractometry 1.005 1.005-1.030 [facility] Leukocyte esterase [Presence] in Urine by Test strip NEGAT HAYLIE [facility] Nitrite [Presence] in Urine by Test strip NEGATIVE [facility] Protein [Presence] in Urine by Test strip NEGATIVE [facility] Glucose [Mass/volume] in Urine by Automated test strip NEGATIVE NEG ATIVE [facility] Ketones [Presence] in Urine by Test strip NEGATIVE [facility] Urobilinogen [Presence] in Urine 0.2-1 EU/dl [facility] Bilirubin.total [Presence] in Urine by Automated test strip NEGATIVE [facility] Erythrocytes [#/volume] in Urine by Test strip TRACE NEGATIV E Above high normal [facility] @DO MICRO!!!! URINE MICROSCOPIC? (CIF) Microscopic Added [facility] ID Date Data Source [id number] 05/30/2019 06:12:00 PM [facility] Reason for ordering culture: Abnormal fi ndings UA@05/30/19 1751: UA W/ MICRO added. RFLXG = UMIC CIF.Method of Collection:: Voided Reason for ordering culture: Abnormal fi ndings UA@05/30/19 1751: UA W/ MICRO added. RFLXG = UMIC CIF.Method of Collection:: Voided Name Value Range Interpretation Code Description Data Yuki rce(s) Supporting Document(s) Erythrocytes [#/volume] in Urine by Manual count OCCASIONAL 0-5 [facility] Cells [Type] in Urine sediment by Light microscopy [facility] Bacteria [Presence] in Urine sediment by Light microscopy NEGATIVE Above high normal [facility] ID Date Data Source [id number] 05/30/2019 05:25:00 PM [facility] ED Physician Documentation NAME: STEFANY HARRISON : 1985 AGE: 34 MR#: [id number] SERVICE DATE: 05/30/[address]: Chris Britt MD PRIMARY CARE DR: Darcy Thapa M.D. ROOM#: HPI (Adult, General) General Chief Complaint: Urogenital Stated Complaint: VAGINAL BLEEDING Time Seen by Provider: 05/30/19 15:35 Source: patient Exam Limitations: no limitations History of Present Illness Narrative: Patient complains of 2 days history of vaginal spotting and intermittent mild pelvic cramping. Also complains of mild urinary discomfort. Patient is 5para 2 and abortions 2. Patient states she is about 8 weeks . No trauma. Patient has milddry cough for about 3 weeks which is gradually improving. She has mild shortness of breath only on exertion which is also improving. No chest pain or fever. Patient states that her blood group is B+. No vaginal discharge otherwise. Allergies/Home Meds Allergies Allergy/AdvReac Type Severity Reaction Status Date / Time No Known Drug Allergies Allergy Verified 05/30/19 15:39 Home Medications Medication Instructions Recorded Confirmed Last Taken Type cyanocobalamin (vitamin B-12) 1,000 mcg PO QDAY 05/30/19 05/30/19 05/30/19 History [B-12 DOTS] ergocalciferol (vitamin D2) 10,000 mcg PO DAILY 05/30/19 05/30/19 05/30/19 History [Vitamin D2] ergocalciferol (vitamin D2) 50,000 unit PO QWEEK 05/30/19 05/30/19 05/30/19 History [Vitamin D2] ferrous fumarate 325 mg PO QDAY 05/30/19 05/30/19 05/29/19 History levothyroxine 150 mcg PO DAILY 05/30/19 05/30/19 05/30/19 History PMH (from Triage) Patient Medical History PMH Reviewed/Updated as Needed: Yes PMH/PSH from Triage: Surgical History (Updated 05/30/19 @ 15:43 by Kari Carranza RN) Gastric bypass status for obesity (Acute Surgical 09/2017) Z98.84 Female History : Yes Lactating mother:: No Hx Drug Resistant Infections Hx Other Resistant Infection?: No Isolation: Standard precautions Social History Are you in a relationship with/Does anyone hit you, yell/swear at you, steal from you?: No Substance Use Second Hand Smoke Exposure: No Smoking Status: Never smoker Vaccination History Hx/Date of Tetanus, Diphtheria Vaccination: Yes Hx/Date of Influenza Vaccination: No Hx/Date of Pneumococcal Vaccination: No Immunizations Up to Date: Yes ROS Review of Systems ROS Narrative: Total of more than 10 systems were reviewed and they were all negative except as mentioned in the history of present illness. Physical Exam General Limitations: no limitations General appearance: alert and in no apparent distress Head Head exam: Present atraumatic and normocephalic Eye Eye exam: Present normal apperance ENT ENT exam: Present other (Normal inspection) Neck Neck exam: Present normal inspection Respiratory Respiratory exam: Present normal lung sounds bilaterally; Absent respiratory distress Cardiovascular Car diovascular Exam: Present regular rate, normal rhythm and normal heart sounds GI/Abdominal GI/Abdominal exam: Present soft; Absent tenderness, guarding, rebound and organomegaly Extremities Exam Extremities exam: Present normal inspection Neurological Exam Neurological exam: Present alert, oriented X3 and other (No gross neurologic deficits) Skin Skin exam: Present warm and dry Vital Signs Vital Signs: Vital Signs 05/30/19 15:36 Temperature 98.1 F Pulse Rate 65 Respiratory Rate 16 Blood Pressure 176/95 O2 Sat by Pulse Oximetry 98 MDM (comprehensive) Lab Data Labs: Laboratory Results Last 24 hours 05/30/19 16:20: HCG, Quant [id number] H 05/30/19 16:20: Blood Type B Positive, Antibody Screen Cancelled 05/30/19 17:39: Urine Color Yellow, Urine Appearance Clear, Urine pH 6.5, Ur Specific Gage 1.005,Urine Protein Negative, Urine Ketones Negative, Urine Blood Trace H, Urine Nitrate Negative, Urine Bilirubin Negative, Urine Urobilinogen 0.2 eu/dl, Ur Leukocyte Esterase Negative, Add Ur Microanalysis Microscopic added, Urine RBC Occasional, Ur Squamous Epith Cells Occasional, Urine Bacteria Small amount H, Urine Glucose Negative Radiology Data Radiology results: report reviewed Radiology impressions: Transvaginal OB ultrasound-6 weeks 1 day intrauterine . Heartbeat not detected Differential Diagnosis Differential Diagnosis: Rule out miscarriage or ectopic Discharge Plan Admission/Discharge Dx Primary DC Diagnosis: Threatened miscarriage ED Provider: Chris Britt ED Status: Ready for Discharge Time Seen by Provider: 05/30/19 15:35 Triaged At: 05/30/19 15:21 Condition Condition: Stable Discharge Detail Disposition: Home, Self-Care Med Rec New Prescriptions: Continued levothyroxine 150 mcg Capsule 150 mcg PO DAILY RF: 0 ergocalciferol (vitamin D2) [Vitamin D2] 1,250 mcg (50,000 unit) Capsule 50,000 unit PO QW [facility] [place] RF: 0 ergocalciferol (vitamin D2) [Vitamin D2] 1,250 mcg (50,000 unit) Capsule 10,000 mcg PO DAILY RF: 0 ferrous fumarate 325 mg (106 mg iron) Tablet 325 mg PO QDAY RF: 0 cyanocobalamin (vitamin B-12) [B-12 DOTS] 500 mcg Tablet 1,000 mcg PO QDAY RF: 0 Discharge Education Printouts: Threatened Miscarriage (ED) Follow Up Visit/Referrals: Darcy Thapa M.D. [Primary Care Provider] - 06/01/19 (Also follow-up with an OB doctor as soon as possible) Medications Medication reconciliation performed by provider at discharge: Yes *Discharge Patient* Discharge Orders: Discharge Order (Routine); Ordered 05/30/19 Ordered By: Chris Britt Interventions Interventions: ED Urogenital Last Done: 05/30/19 15:37 Report Signers: <Electronically signed by Chris Britt MD> Chris Britt MD 05/30/191921 Chris Britt MD SIGNATURE DA Report Cosigners: D: EVELIA 05/30/191724 T: EVELIA 05/30/191724 CC: Darcy Thapa M.D. Name Value Range Interpretation Code Description Data Yuki rce(s) Supporting Document(s) ID Date Data Source [id number] 05/30/2019 05:16:00 PM EST [facility] Name Value Range Interpretation Code Description Data Yuki rce(s) Supporting Document(s) Choriogonadotropin.beta subunit [Units/volume] in Seru m or Plasma 38481 m[iU]/mL 0-10 Above high normal [facility] spital @Instrument will autodiluteAPPROXIMATE G ESTATION AGE APRROXIMATE HCG RANGE 0-1 WEEK 0 - 50 1-2 WEEKS 40 - 300 2-3 WEEKS 100 - 1,000 3-4 WEEKS 500 - 6,000 1-2 MONTHS 5,000 - 200,000 2- 3 MONTHS 10,000 - 100,000 2ND TRIMESTER 3,000 - 50,000 3RD TRIMESTER 1,000 - 50,000 ID Date Data Source [id number] 05/30/2019 05:33:00 PM [facility] @05/30/19 1733: Pre Op? added. RFLXG = T RX.@05/30/19 1733: Pretransfusion? added. RFLXG = TRX.@05/30/19 1733: Inpatient? added. RFLXG = TRX.:: NTransfused within 90 days?: NPre Op? (IF Yes, give date): N Name Value Range Interpretation Code Description Data Yuki rce(s) Supporting Document(s) Blood bank studies (set) No A [facility] @To complete the specimen, you MUST pull the specimen back@up and answer the Preop, Transfusion and Inpatient@questions. Perform a second Type if needed. Blood Type [facility] Antibody Screen NEGATIVE [facility] ID Date Data Source [id number] 05/30/2019 05:33:00 PM [facility] @05/30/19 1733: Pre Op? added. RFLXG = T RX.@05/30/19 1733: Pretransfusion? added. RFLXG = TRX.@05/30/19 1733: Inpatient? added. RFLXG = TRX.:: NTransfused within 90 days?: NPre Op? (IF Yes, give date): N Name Value Range Interpretation Code Description Data Yuki rce(s) Supporting Document(s) Pre Op? No [facility] ID Date Data Source [id number] 05/30/2019 05:33:00 PM [facility] @05/30/19 1733: Pre Op? added. RFLXG = T RX.@05/30/19 1733: Pretransfusion? added. RFLXG = TRX.@05/30/19 1733: Inpatient? added. RFLXG = TRX.:: NTransfused within 90 days?: NPre Op? (IF Yes, give date): N Name Value Range Interpretation Code Description Data Yuki rce(s) Supporting Document(s) Pretransfusion? No [facility] Hospital ID Date Data Source [id number] 05/30/2019 05:33:00 PM EST [facility] @05/30/19 1733: Pre Op? added. RFLXG = T RX.@05/30/19 1733: Pretransfusion? added. RFLXG = TRX.@05/30/19 1733: Inpatient? added. RFLXG = TRX.:: NTransfused within 90 days?: NPre Op? (IF Yes, give date): N Name Value Range Interpretation Code Description Data Yuki rce(s) Supporting Document(s) Inpatient? Yes A [facility] Hospital ID Date Data Source [id number] 05/30/2019 04:13:00 PM [facility] [address] [id number] [phone] NAME SEX PT STATUS ACCOUNT NUMBER STEFANY HARRISON [facility] ER [id number] ORDERING PHYSICIAN LOCATION MEDICAL RECORD NO. Chris Britt MD ER [id number] ATTENDING PHYSICIAN DATE OF DATE OF EXAM/TIME Darcy Thapa MD 1985 05/[birth year]/191722 TYPE / EXAM US OB Ultrasound <14 weeks REASON FOR EXAM 8 weeks , vaginal bleeding Clinical History/Indication for Exam: 8 weeks , vaginal bleeding EXAM: US First Trimester, Transabdominal US , Transvaginal CLINICAL HISTORY: 8 week with vaginal bleeding. TECHNIQUE: Real-time transabdominal and transvaginal obstetrical ultrasound of the maternal pelvis and a first trimester with image documentation. Transvaginal imaging was used for better evaluation of the fetus and adnexa. COMPARISON: No relevant prior studies available. FINDINGS: Gestation: Intrauterine gestational sac is seen. Mean sac diameter is 12.2 mm. pole identified measuring 4.3 mm. Normal yolk sac. heart rate is not detected at this time perhaps due to early stage. Placenta/amniotic fluid: Cannot be adequately evaluated due to the early gestational age. Uterus/cervix: Anteverted uterus measures 10.7 x 4.3 x 6.2 cm. No uterine mass or fibroid is identified. Ovaries: The right ovary measures 3.5 x 2.0 x 1.5 cm. The left ovary measures 2.8 x 1.5 x 2.5 cm. There is no adnexal mass or cyst. Free fluid: No free fluid. IMPRESSION: Early first trimester intrauterine corresponding to 6 weeks 1 day by crown-rump length measurement anticipated delivery date of 01/22/2020. Heart rate is not detected at this time and a follow-up study within 4-7 days is recommended to reassess. No adnexal mass or cyst. No evidence of katja-gestational bleed. REPORT SIGNATURE ON FILE 05/30/2019 (16:13 [place] Time ) Signed by: Gaudencio Delcid M.D. Reported By Gaudencio Delcid MD on 05/30/191612 Signed By Gaudencio Delcid MD on 05/30/191612 Date Time CC: Gaudencio Delcid MD; Darcy Thapa M.D. Techn: JUAN PABLO Diaz Dt/Tm: Trans by: EARLINE Prt Dt/Tm: 4: Total DLP = 0.00 mGy-cm [id number]: Total Radiation Dose = 0.0000 mSv Lifetime Dose: 0 mSv Name Value Range Interpretation Code Description Data Yuki rce(s) Supporting Document(s) Procedure Social History Code Duration Value Status Description Data Source(s ) Smoking 06/18/2020 12:00:00 AM EST Never Smoker completed Never S moker eCW1 ([facility]) Smoking 05/22/2020 12:00:00 AM EST Never Smoker completed Never S moker eCW1 ([facility]) Smoking 05/08/2020 12:00:00 AM EST Never Smoker completed Never S moker eCW1 ([facility]) Smoking 04/16/2020 12:00:00 AM EST Never Smoker completed Never S moker eCW1 ([facility]) Smoking 03/22/2020 12:00:00 AM EST Patient has never smoked co mpleted Patient has never smoked MEDENT ([facility]) Smoking 03/20/2020 12:00:00 AM EST Never Smoker completed Never S moker eCW1 ([facility]) Smoking 03/20/2020 12:00:00 AM EST Never Smoker completed Never S moker eCW1 ([facility]) Smoking 03/20/2020 12:00:00 AM EST Never Smoker completed Never S moker eCW1 ([facility]) Smoking 03/20/2020 12:00:00 AM EST Never Smoker completed Never S moker eCW1 ([facility]) Smoking 02/22/2020 12:00:00 AM EDT Never Smoker completed Never S moker eCW1 ([facility]) Smoking 11/29/2019 12:00:00 AM EDT Never Smoker completed Never S moker eCW1 ([facility]) Smoking 11/08/2019 12:00:00 AM EDT Never Smoker completed Never S moker eCW1 ([facility]) Smoking 07/20/2019 12:00:00 AM EST Never Smoker completed Never S moker eCW1 ([facility]) 05/30/2019 05:28:05 PM EST Never smoker completed Never s [facility] Smoking 05/30/2019 05:28:00 PM EST Never smoker completed Never s [facility] Vital Signs ID Date Data Source UNK Name Value Range Interpretation Code Description Data Source(s) Diastolic blood pressure 70 mm[Hg] 70 mm[Hg] eCW1 ([facility]) Systolic blood pressure 102 mm[Hg] 102 mm[Hg] e CW1 ([facility]) Body mass index (BMI) [Ratio] 32.931 kg/m2 32.9 31 kg/m2 W1 ([facility]) Body height 69 [in_i] 69 [in_i] W1 ([facility]) Body weight 223 [lb_av] 223 [lb_av] eCW1 ([facility]) Diastolic blood pressure 68 mm[Hg] 68 mm[Hg] eCW1 ([facility]) Systolic blood pressure 94 mm[Hg] 94 mm[Hg] e CW1 ([facility]) Body mass index (BMI) [Ratio] 32.341 kg/m2 32.3 41 kg/m2 eCW1 ([facility]) Body height 69 [in_i] 69 [in_i] eCW1 ([facility]) Body weight 99.34 kg 99.34 kg eCW1 ([facility]) Body weight 219 [lb_av] 219 [lb_av] eCW1 ([facility]) Diastolic blood pressure 68 mm[Hg] 68 mm[Hg] eCW1 ([facility]) Systolic blood pressure 100 mm[Hg] 100 mm[Hg] e CW1 ([facility]) Body mass index (BMI) [Ratio] 31.75 kg/m2 31.75 kg/m2 W1 ([facility]) Body height 69 [in_i] 69 [in_i] eCW1 ([facility]) Body weight 97.52 kg 97.52 kg W1 ([facility]) Body weight 215.0 [lb_av] 215.0 [lb_av] [facility]CW[facility] Diastolic blood pressure 70 mm[Hg] 70 mm[Hg] eCW1 ([facility]) Systolic blood pressure 110 mm[Hg] 110 mm[Hg] e CW1 ([facility]) Body mass index (BMI) [Ratio] 31.366 kg/m2 31.3 66 kg/m2 eCW1 ([facility]) Body height 69 [in_i] 69 [in_i] eCW1 ([facility]) Body weight 212.4 [lb_av] 212.4 [lb_av] eCW1 [facility] Oxygen saturation in Arterial blood by Pulse oximetry 98 % 98 % MEDENT ([facility]) Body mass index (BMI) [Ratio] 31.1 kg/m2 31.1 k g/m2 MEDENT ([facility]) Body weight 207.38 [lb_av] 207.38 [lb_av] MEDEN T ([facility]) Body height 68.5 [in_i] 68.5 [in_i] MEDENT ([facility]) 5'8.50" Body temperature 97.3 [degF] 97.3 [degF] MEDENT ([facility]) Heart rate 70 /min 70 /min MEDENT ([facility] ) Diastolic blood pressure 70 mm[Hg] 70 mm[Hg] MEDENT ([facility] ) Systolic blood pressure 126 mm[Hg] 126 mm[Hg] M EDENT ([facility] ) Diastolic blood pressure 82 mm[Hg] 82 mm[Hg] eCW1 ([facility]) Systolic blood pressure 112 mm[Hg] 112 mm[Hg] e 1 ([facility]) Body mass index (BMI) [Ratio] 30.657 kg/m2 30.6 57 kg/m2 [facility] ([facility]) Body height 69 [in_i] 69 [in_i] eCW1 ([facility]) Body weight 94.17 kg 94.17 kg [facility] ([facility]) Body weight 207.6 [lb_av] 207.6 [lb_av] eCW1 ([facility] Diastolic blood pressure 72 mm[Hg] 72 mm[Hg] eCW1 ([facility]) Systolic blood pressure 118 mm[Hg] 118 mm[Hg] e CW1 ([facility]) Body mass index (BMI) [Ratio] 29.446 kg/m2 29.4 46 kg/m2 eCW1 ([facility]) Body height 69 [in_i] 69 [in_i] eCW1 ([facility]) Body weight 199.4 [lb_av] 199.4 [lb_av] eCW1 ([facility] Body mass index (BMI) [Ratio] 29.8 kg/m2 29.8 k g/m2 MEDENT ([facility] ) Body weight 199.00 [lb_av] 199.00 [lb_av] MEDEN T ([facility]) Body height 68.5 [in_i] 68.5 [in_i] MEDENT ([facility]) 5'8.50" Body temperature 97.1 [degF] 97.1 [degF] MEDENT ([facility]) Heart rate 72 /min 72 /min MEDENT ([facility]) Diastolic blood pressure 72 mm[Hg] 72 mm[Hg] MEDENT ([facility]) Systolic blood pressure 100 mm[Hg] 100 mm[Hg] M EDENT ([facility]) Oxygen saturation in Arterial blood by Pulse oximetry 97 % 97 % MEDENT ([facility]) Body mass index (BMI) [Ratio] 28.6 kg/m2 28.6 k g/m2 MED[facility] ([facility]) Body weight 191.00 [lb_av] 191.00 [lb_av] MEDEN T ([facility]) Body height 68.5 [in_i] 68.5 [in_i] MEDENT ([facility]) 5'8.50" Heart rate 98 /min 98 /min MEDENT ([facility]) Diastolic blood pressure 62 mm[Hg] 62 mm[Hg] MEDENT ([facility]) Systolic blood pressure 110 mm[Hg] 110 mm[Hg] M EDENT ([facility]) Oxygen saturation in Arterial blood by Pulse oximetry 99 % 99 % [facility] ([facility]) Body mass index (BMI) [Ratio] 27.7 kg/m2 27.7 k g/m2 [facility] ([facility]) Body weight 185.00 [lb_av] 185.00 [lb_av] MEDEN T ([facility]) Body height 68.5 [in_i] 68.5 [in_i] MEDENT ([facility]) 5'8.50" Heart rate 83 /min 83 /min MEDENT ([facility]) Diastolic blood pressure 72 mm[Hg] 72 mm[Hg] MEDENT ([facility]) Systolic blood pressure 114 mm[Hg] 114 mm[Hg] M EDENT ([facility]) Diastolic blood pressure 74 mm[Hg] 74 mm[Hg] eCW1 ([facility]) Systolic blood pressure 122 mm[Hg] 122 mm[Hg] e CW1 ([facility]) Body mass index (BMI) [Ratio] 27.083 kg/m2 27.0 83 kg/m2 W1 ([facility]) Body height 69 [in_i] 69 [in_i] eCW1 ([facility]) Body weight 183.4 [lb_av] 183.4 [lb_av] eCW1 ([facility] Oxygen saturation in Arterial blood by Pulse oximetry 99 % 99 % [facility]ENT ([facility]) Body mass index (BMI) [Ratio] 27.3 kg/m2 27.3 k g/m2 MED[facility] ([facility]) Body weight 182.25 [lb_av] 182.25 [lb_av] MEDEN T ([facility]) Body height 68.5 [in_i] 68.5 [in_i] MEDENT ([facility]) 5'8.50" Heart rate 69 /min 69 /min MEDENT ([facility]) Diastolic blood pressure 60 mm[Hg] 60 mm[Hg] MEDENT ([facility]) Systolic blood pressure 122 mm[Hg] 122 mm[Hg] M EDENT ([facility]) Oxygen saturation in Arterial blood by Pulse oximetry 99 % 99 % [facility] ([facility]) Body mass index (BMI) [Ratio] 27.9 kg/m2 27.9 k g/m2 [facility] ([facility]) Body weight 186.00 [lb_av] 186.00 [lb_av] MEDEN T ([facility]) Body height 68.5 [in_i] 68.5 [in_i] MEDENT ([facility]) 5'8.50" Heart rate 97 /min 97 /min MEDENT ([facility]) Diastolic blood pressure 62 mm[Hg] 62 mm[Hg] MEDENT ([facility]) Systolic blood pressure 110 mm[Hg] 110 mm[Hg] M EDENT ([facility]) Diastolic blood pressure 78 mm[Hg] 78 mm[Hg] eCW1 ([facility]) Systolic blood pressure 108 mm[Hg] 108 mm[Hg] e CW1 ([facility]) Body mass index (BMI) [Ratio] 27.82 kg/m2 27.82 kg/m2 W1 ([facility]) Body height 69 [in_us] 69 [in_us] eCW1 ([facility]) Body weight Measured 188.4 [lb_av] 188.4 [lb_av ] eCW1 ([facility]) Diastolic blood pressure 78 mm[Hg] 78 mm[Hg] eCW1 ([facility]) Systolic blood pressure 124 mm[Hg] 124 mm[Hg] e CW1 ([facility]) Body mass index (BMI) [Ratio] 27.41 kg/m2 27.41 kg/m2 eCW1 ([facility]) Body height 69 [in_us] 69 [in_us] eCW1 ([facility]) Body weight Measured 185.6 [lb_av] 185.6 [lb_av ] eCW1 ([facility]) Patient Treatment Plan of Care Planned Activity Planned Date Details Description Data Source (s) Glucose Monitor - 03/22/2020 12:00:00 AM EST eCW1 ([facility]) Lancets - 03/22/2020 12:00:00 AM EST e CW1 ([facility]) Test Strips - 03/22/2020 12:00:00 AM EST eCW1 ([facility]) Alcohol Pads 70 % 03/22/2020 12:00:00 AM EST eCW1 ([facility]) Glucose Monitor - 03/22/2020 12:00:00 AM EST eCW1 ([facility]) Lancets - 03/22/2020 12:00:00 AM EST e CW1 ([facility]) Test Strips - 03/22/2020 12:00:00 AM EST eCW1 ([facility]) Alcohol Pads 70 % 03/22/2020 12:00:00 AM EST eCW1 ([facility]) Glucose Monitor - 03/22/2020 12:00:00 AM EST eCW1 ([facility]) Lancets - 03/22/2020 12:00:00 AM EST e CW1 ([facility]) Test Strips - 03/22/2020 12:00:00 AM EST eCW1 ([facility]) Alcohol Pads 70 % 03/22/2020 12:00:00 AM EST eCW1 ([facility]) Progesterone 100 MG Oral Capsule [Prometrium] 10/25/2019 12:00:00 A M EDT eCW1 ([facility])
[2020-06-28 21:50] LABS: HEMATOCRIT 41.5 % (36.0-47.0); HEMOGLOBIN 13.8 g/dl (12.0-15.5); MEAN CORPUSCULAR HEMOGLOBIN 30.1 pg (27.0-33.0); MEAN CORPUSCULAR HGB CONC 33.3 g/dl (32.0-36.5); MEAN CORPUSCULAR VOLUME 90.4 fl (80.0-96.0); PLATELET COUNT, AUTOMATED 281 10^3/uL (150-450); RED BLOOD COUNT 4.59 10^6/uL (4.00-5.40); WHITE BLOOD COUNT 13.1 10^3/uL (4.0-10.0)
[2020-06-28 23:47] VITALS: BP 107/67
--- NOTE | 2020-06-29 00:01 | HPE ---
HISTORY AND PHYSICAL DATE OF ADMISSION: 06/28/2020 HISTORY OF PRESENT ILLNESS: Germania is a 35-year-old 6, para 1, 1, 3, 2, who is 39 and 1 weeks gestation with an EDC of 07/04/2020 based on last menstrual period and confirmed by first trimester ultrasound. She presents to labor and delivery today with reported contractions that started at approximately 6:00 p.m. She does report scant bloody show. Denies leakage of fluid and the fetus has been active. care [facility] in the first trimester. course complicated by history of gastric bypass, prior section with a successful vaginal delivery prior to her , with a desire for TOLAC, autoimmune thyroiditis and she has had normal thyroid function tests throughout her . OBSTETRIC HISTORY: On 03/28/2015; 39 weeks and 2 days, 8 pound and 8 ounce male, vaginal delivery with no complications. In January 2016; 6 weeks spontaneous miscarriage. Third at 35 weeks was section for placenta previa with cervical shortening and active bleeding. In January 2018; 6 weeks spontaneous miscarriage. May 2019; 6 weeks miscarriage with a D and C. OBSTETRIC LABS: B+. Antibody screen negative. Syphilis negative. Gonorrhea and Chlamydia negative. Hepatitis B surface antigen negative. Hepatitis C antibody negative. HIV negative. Rubella immune. She did not undergo gestational diabetic screening. She did finger sticks, that were normal for seven days. Her GBS is negative. PAST MEDICAL HISTORY: Autoimmune thyroiditis, depression, PAST SURGICAL HISTORY: Gastric bypass, section, D and C. FAMILY HISTORY: Diabetes, hypothyroidism. SOCIAL HISTORY: She is . Her is at bedside and supportive. She is a non-smoker. She denies alcohol and drug use. No history of sexually transmitted infections and denies history of abuse. ALLERGIES: Latex. CURRENT MEDICATIONS: vitamin. OBJECTIVE: Temperature 97.6, pulse 86, respiratory rate not documented, blood pressure 111/70. Alert and oriented x3. She appears mildly uncomfortable. heart rate is 135, moderate variability, positive accelerations, negative decelerations, contractions every 5 minutes. Stirile vaginal exam 6 cm dilated, 80% effaced, 0 station with a bulging bag of water. Scant bloody show with exam. ASSESSMENT: Intrauterine at 39 and 1/7 weeks, heart rate category 1, active labor. PLAN: Admit the patient to labor and delivery. Saline block, routine labs, out of bed ad sallie, clear liquid diet. I did consent the patient for emergency surgery and blood products if they are necessary. I did discuss risks, benefits and alternatives with the patient. She does desire to proceed with assist rupture of membranes to augment her labor. Dr. Velasquez will be made aware of patient's status. I do anticipate a vaginal delivery. MTDD
[2020-06-29] MEDS ORDERED: OXYTOCIN 30 UNITS IN 0.9% NaCl 500ML IV BAG (J2590) As Ordered ONE (01:16)
[2020-06-29 02:22] VITALS: BP 108/68
[2020-06-29] MEDS ORDERED: OXYTOCIN DRIP 30 UNITS in IV 1 EA IV SCH (02:29)
[2020-06-29] MEDS ORDERED: IBUPROFEN 800 MG TAB PO PRN (02:30)
[2020-06-29] MEDS ORDERED: ACETAMINOPHEN TAB 650MG DOSE (2X325MG) PO PRN (02:30)
[2020-06-29] MEDS ORDERED: METHYLERGONOVINE MALEATE 0.2 MG/ML VIAL (J2210) IM ONE (02:30)
[2020-06-29] MEDS ORDERED: IBUPROFEN 600MG TAB PO PRN (02:30)
[2020-06-29] MEDS ORDERED: ANUSOL HC CREAM 30GM TOP PRN (02:30)
[2020-06-29] MEDS ORDERED: METHYLERGONOVINE MALEATE 0.2 MG TAB PO PRN (02:30)
[2020-06-29] MEDS ORDERED: DOCUSATE SODIUM 100MG CAPSULE PO PRN (02:30)
[2020-06-29] MEDS ORDERED: BENZOCAINE 20% HEMORRHOIDAL OINTMENT 28GM TUBE TOP PRN (02:30)
[2020-06-29] MEDS ORDERED: RHOGAM 300 MCG (1500 IU) INJ (J2790) IM SCH (02:30)
[2020-06-29] MEDS ORDERED: ACETAMINOPHEN 500 MG TAB PO PRN (02:30)
[2020-06-29] MEDS ORDERED: LIDOCAINE 1% MDV 20ML VIAL INFIL ONE (02:30)
[2020-06-29] MEDS ORDERED: MEASLES,MUMPS,RUBELLA VACCINE INJ (MMR-II) (90707) SC SCH (02:30)
[2020-06-29 02:37] VITALS: BP 103/61
[2020-06-29 02:52] VITALS: BP 103/56
[2020-06-29 04:25] VITALS: BP 100/59
[2020-06-29 06:04] VITALS: BP 106/63
[2020-06-29] MEDS: PRENATAL VITAMINS CHEWABLE TABLET PO SCH (07:40)
--- NOTE | 2020-06-29 08:35 | DN ---
DELIVERY NOTE DATE OF DELIVERY: 06/29/2020 TIME OF : GENDER: Male APGARS: 8 and 9 LACERATIONS: First-degree midline. ANESTHESIA: None. ESTIMATED BLOOD LOSS: 400 mL. COUNTS: Correct and verified. DESCRIPTION OF DELIVERY: Germania is a 35-year-old 6, para 2-1-3-3 now, who was admitted to labor and delivery in active labor. She coped with her labor physiologically. She reached complete dilation at 0149. She pushed to a normal spontaneous vaginal delivery of a live male in left occiput anterior (STARLA) position with restitution to left occiput transverse (LOT) position at 0156. There was a nuchal cord x1 loose reduced manually at the time of delivery. The shoulders delivered with gentle downward traction and the corpus immediately followed. The mouth and nares were bulb suctioned and he was placed on the abdomen crying and active. The cord was clamped x2 once pulsations ceased and cut by the father of the baby under my direction. Spontaneous expulsion of an intact placenta with three-vessel cord by Muñoz mechanism was at 0200. Uterine hemostasis achieved with IV Pitocin rapid infusion, Methergine 0.2 mg IM, and uterine fundal massage. Estimated blood loss 400 mL. Perineum and vagina inspected noted to have a first-degree midline laceration that extended to the left labia, as well as a small periurethral abrasion. The lacerations were infiltrated with 1% Lidocaine and repaired with 3-0 Vicryl Rapide in the usual fashion. The male weighed 7 pounds 15 ounces (3610 grams). 8 and 9. Family has named their son, Brandon, and the mom is going to breastfeed. At the close of delivery lap counts, needle counts, and instrument counts were correct and verified. [facility]
[2020-06-29 18:00] VITALS: BP 103/61
[2020-06-30 05:40] VITALS: BP 105/56
[2020-06-30] MEDS: PRENATAL VITAMINS CHEWABLE TABLET PO SCH (08:24)
== END 2020-06-30 11:40 | disposition home or self-care (01) | DRG 560 ==
LOC: M LDO 20:03 → M LDI 21:06 → M OBS 06-29 04:16
PROVIDERS: ADMIT Advanced Practice Midwife; ATTEND Advanced Practice Midwife
PROC: 10E0XZZ Delivery of Products of Conception, External Approach (ICD-10-PCS; principal; 2020-06-29)
PROC: 0HQ9XZZ Repair Perineum Skin, External Approach (ICD-10-PCS; 2020-06-29)
DX: O34.219 Maternal care for unspecified type scar from previous cesarean delivery (principal); Z3A.39 39 weeks gestation of pregnancy; Z37.0 Single live birth; O99.844 Bariatric surgery status complicating childbirth; O69.81X0 Labor and delivery complicated by cord around neck, without compression, not applicable or unspecified; O70.0 First degree perineal laceration during delivery

== ENCOUNTER → 2020-09-01 | Outpatient (REF) | payer BC ==
[2020-09-01 13:55] LABS: FREE T4 1.25 NG/DL (0.76-1.46); THYROID STIMULATING HORMONE < 0.005 uIU/ML (0.358-3.740)
== END ==
LOC: M PLALAB 12:48
PROVIDERS: ATTEND Nurse Practitioner Family
DX: E06.3 Autoimmune thyroiditis (principal)

== ENCOUNTER → 2020-10-23 | Outpatient (REF) | payer BC, OTHER | LOC: M SMT 13:20 | PROVIDERS: ATTEND Advanced Practice Midwife | DX: Z12.4 Encounter for screening for malignant neoplasm of cervix (principal) | CPT/HCPCS: 87624; G0123 ==

== ENCOUNTER → 2020-11-01 | Outpatient (REF) | payer BC, OTHER ==
[2020-11-01 14:43] LABS: FREE T4 1.33 NG/DL (0.76-1.46); THYROID STIMULATING HORMONE 0.017 uIU/ML (0.358-3.740)
== END ==
LOC: M PLALAB 13:00
PROVIDERS: ATTEND Nurse Practitioner Family
DX: E06.3 Autoimmune thyroiditis (principal)

== ENCOUNTER → 2021-01-09 | Outpatient (CLI) | payer BC, OTHER | LOC: M PLALAB 10:49 | PROVIDERS: ATTEND Nurse Practitioner Family | DX: E06.3 Autoimmune thyroiditis (principal) ==

== ENCOUNTER → 2021-01-19 | Outpatient (CLI) | payer BC, OTHER ==
[2021-01-19 17:47] LABS: BASO % 0.3 % (0.0-1.0); EOS # 0.1 10^3/uL (0.0-0.5); EOS % 1.9 % (0.0-3.0); HEMATOCRIT 41.9 % (36.0-47.0); HEMOGLOBIN 13.9 g/dl (12.0-15.5); LYMPH # 2.9 10^3/uL (1.5-5.0); LYMPH % 46.4 % (24.0-44.0); MEAN CORPUSCULAR HEMOGLOBIN 30.5 pg (27.0-33.0); MEAN CORPUSCULAR HGB CONC 33.2 g/dl (32.0-36.5); MEAN CORPUSCULAR VOLUME 91.9 fl (80.0-96.0); MONO # 0.5 10^3/uL (0.0-0.8); MONO % 7.8 % (2.0-8.0); NEUTROPHILS # 2.7 10^3/uL (1.5-8.5); NEUTROPHILS % 43.4 % (36.0-66.0); PLATELET COUNT, AUTOMATED 341 10^3/uL (150-450); RED BLOOD COUNT 4.56 10^6/uL (4.00-5.40); WHITE BLOOD COUNT 6.2 10^3/uL (4.0-10.0)
[2021-01-19 18:22] LABS: ALBUMIN 3.7 GM/DL (3.2-5.2); ALT/SGPT 20 U/L (12-78); BILIRUBIN,TOTAL 0.4 MG/DL (0.2-1.0); BLOOD UREA NITROGEN 12 MG/DL (7-18); CALCIUM LEVEL 8.6 MG/DL (8.5-10.1); CARBON DIOXIDE LEVEL 27 MEQ/L (21-32); CHLORIDE LEVEL 108 MEQ/L (98-107); CREATININE FOR GFR 0.68 MG/DL (0.55-1.30); FERRITIN 17 NG/ML (8-252); GLOMERULAR FILTRATION RATE > 60.0 (>60); GLUCOSE, FASTING 73 MG/DL (70-100); IRON (FE) 118 UG/DL (50-170); MAGNESIUM LEVEL 2.5 MG/DL (1.8-2.4); PERCENT SATURATION 33.3 % (13.2-45.0); PHOSPHORUS LEVEL 3.9 MG/DL (2.5-4.9); POTASSIUM SERUM 4.2 MEQ/L (3.5-5.1); SODIUM LEVEL 141 MEQ/L (136-145); TOTAL IRON BINDING CAPACITY 354 UG/DL (250-450); TOTAL PROTEIN 7.3 GM/DL (6.4-8.2)
[2021-01-19 18:30] LABS: TOTAL 25(OH) VITAMIN D 17.9 NG/ML (30.0-100.0); VITAMIN B12 LEVEL 340 PG/ML (247-911)
== END ==
LOC: M PLALAB 14:42
PROVIDERS: ATTEND Physician Assistant
DX: K91.2 Postsurgical malabsorption, not elsewhere classified (principal); Z98.84 Bariatric surgery status; E55.9 Vitamin D deficiency, unspecified; Z86.39 Personal history of other endocrine, nutritional and metabolic disease

== ENCOUNTER → 2021-06-05 | Outpatient (CLI) | payer BC, OTHER ==
[2021-06-05 18:07] LABS: FREE T4 0.91 NG/DL (0.76-1.46); THYROID STIMULATING HORMONE 3.72 uIU/ML (0.358-3.740)
== END ==
LOC: M PLALAB 15:57
PROVIDERS: ATTEND Nurse Practitioner Family
DX: E06.3 Autoimmune thyroiditis (principal)

== ENCOUNTER → 2022-01-08 | Outpatient (REF) | payer OTHER | LOC: M PLALAB 09:04 | PROVIDERS: ATTEND Advanced Practice Midwife | DX: Z12.4 Encounter for screening for malignant neoplasm of cervix (principal) | CPT/HCPCS: 87624; G0123 ==

== ENCOUNTER → 2022-01-08 | Outpatient (CLI) | payer BC, OTHER ==
[2022-01-08 14:22] LABS: TOTAL 25(OH) VITAMIN D 16.2 NG/ML (30.0-100.0)
== END ==
LOC: M PLALAB 08:58
PROVIDERS: ATTEND Advanced Practice Midwife
DX: K90.9 Intestinal malabsorption, unspecified (principal)

== ENCOUNTER → 2022-12-13 | Outpatient (REF) | payer BC, OTHER ==
[2022-12-13 17:02] LABS: FREE T4 0.91 NG/DL (0.89-1.76); THYROID STIMULATING HORMONE 5.615 uIU/ML (0.55-4.78)
== END ==
LOC: M WUC 16:17
PROVIDERS: ATTEND Nurse Practitioner Family
DX: E06.3 Autoimmune thyroiditis (principal)